=== PATIENT | female | born 1955 | race Caucasian/White ===

== ENCOUNTER 2017-09-16 06:35 | Day surgery (SDC) | payer OTHER ==
[2017-09-08 14:42] VITALS: BMI 35.5
[~2017-09-16 06:35] MED LIST: ALPRAZolam 0.25 MG TAB PO PRN; ALPRAZolam 0.5 MG TAB PO PRN; ASPIRIN 325 MG TAB PO STA; ATORVASTATIN 80 MG TAB PO STA; NITROGLYCERIN SL TABS 0.4 MG TAB SUBLINGUAL PRN; SODIUM CHLORIDE 0.9% 1,000 ML in EMPTY BAG 1 BAG IV ONE
[2017-09-16] MEDS ORDERED: LIDOCAINE 2% INJ 20 MG/ML (20 ML MDV) ONE (07:22)
[2017-09-16] MEDS ORDERED: VERAPAMIL 2.5 MG/ML 2 ML AMP ONE (07:23)
[2017-09-16 07:31] LABS: Basophils % (A) 0 %; Eosinophils # (A) 0.3 k/uL (0-0.7); Eosinophils % (A) 4 %; HCT 44.2 % (34.0-46.0); HGB 15.4 gm/dL (11.4-16.0); Lymphocytes % (A) 27 %; MCH 30.2 pg (25.0-35.0); MCHC 34.8 g/dL (31.0-37.0); MCV 86.7 fL (80.0-100.0); Mean Platelet Volume 7.3; Monocytes # (A) 0.4 k/uL (0-1.0); Monocytes % (A) 5 %; Neutrophils # (A) 4.5 k/uL (1.3-7.7); Neutrophils % (A) 62 %; Platelet Count 285 k/uL (150-450); RDW 12.2 % (11.5-15.5); WBC 7.2 k/uL (3.8-10.6)
[2017-09-16] MEDS ORDERED: MIDAZOLAM 2 MG/2 ML VIAL ONE ×2 (07:31→07:51)
[2017-09-16] MEDS ORDERED: HEPARIN SODIUM 1,000 UN/ML (10ML VL) ONE (07:31)
[2017-09-16 07:44] LABS: Anion Gap 15 mmol/L; Blood Urea Nitrogen 15 mg/dL (7-17); Calcium 9.6 mg/dL (8.4-10.2); Carbon Dioxide 26 mmol/L (22-30); Chloride 105 mmol/L (98-107); Glucose 132 mg/dL (74-99); Potassium 4.2 mmol/L (3.5-5.1); Sodium 146 mmol/L (137-145)
[2017-09-16] MEDS ORDERED: MIDAZOLAM 2 MG/2 ML VIAL IV ONE ×2 (07:50→07:53)
[2017-09-16] MEDS ORDERED: LIDOCAINE 2% INJ 20 MG/ML SQ ONE (07:52)
[2017-09-16] MEDS: VERAPAMIL SYRINGE (5 MG/10 ML) INTRAARTER ONE ×2 (07:53→09:00)
[2017-09-16] MEDS ORDERED: HEPARIN SODIUM 1,000 UN/ML (10ML VL) IV ONE (07:55)
[2017-09-16] MEDS: NITROGLYCERIN 1000MCG/10ML SYRINGE INTRAARTER ONE ×5 (07:59→08:55)
[2017-09-16] MEDS ORDERED: BIVALIRUDIN BOLUS 250 MG/50 ML IV ONE (08:14)
[2017-09-16] MEDS ORDERED: BIVALIRUDIN 250 MG in SODIUM CHLORIDE 0.9% 40 ML IV ONE (08:15)
[2017-09-16] MEDS ORDERED: fentaNYL (PF) 50 MCG/ML 2 ML AMP ONE (08:16)
[2017-09-16] MEDS ORDERED: fentaNYL (PF) 50 MCG/ML 2 ML AMP IV ONE (08:17)
[2017-09-16] MEDS ORDERED: ADENOSINE 90 MG in SODIUM CHLORIDE 0.9% 60 ML IVP ONE (08:23)
[2017-09-16] MEDS ORDERED: PRASUGREL 10 MG TAB ONE (08:30)
[2017-09-16] MEDS ORDERED: PRASUGREL 10 MG TAB PO ONE (08:32)
[2017-09-16] MEDS ORDERED: IOPAMIDOL-370 125ML BTL INJ ONE (08:39)
[2017-09-16] MEDS ORDERED: IOPAMIDOL-370 100ML BTL INJ ONE (08:58)
[2017-09-16] MEDS ORDERED: NITROGLYCERIN SL TABS 0.4 MG TAB SUBLINGUAL ONE ×2 (09:05→09:06)
[2017-09-16] MEDS ORDERED: NITROGLYCERIN SL TABS 0.4 MG TAB SUBLINGUAL PRN (09:07)
[2017-09-16] MEDS ORDERED: RX INFO: IV CONTRAST WAS GIVEN 1 EACH MISC MISCELLANE PRN (09:07)
[2017-09-16] MEDS ORDERED: MAG HYDROX/AL HYDROX/SIMETH 30 ML CUP PO PRN (09:07)
[2017-09-16] MEDS ORDERED: ATROPINE SULFATE 0.1 MG/ML 10ML SYRINGE IV PRN (09:07)
[2017-09-16] MEDS ORDERED: ZOLPIDEM 5 MG TAB PO PRN (09:07)
[2017-09-16] MEDS ORDERED: SODIUM CHLORIDE 0.9% 1,000 ML IV SCH (09:15)
--- NOTE | 2017-09-16 09:47 | CC ---
CARDIAC CATHETERIZATION REPORT DATE OF SERVICE: 09/16/2017 PERFORMING PHYSICIAN: Ritchie Hilliard MD, automobile service advisor. PROCEDURE PERFORMED: 1. Selective right and left coronary angiogram. 2. Left heart catheterization. 3. Fractional flow reserve of the LAD. 4. Successful stenting of the LAD using a 3.0 x 15 mm Xience ARGENIS with good angiographic results. 5. Successful stenting of the mid RCA using 2.5 x 15 mm Xience ARGENIS with good angiographic results. INDICATION: This is a pleasant 61-year-old female patient with a past medical history significant for hypertension, dyslipidemia, and borderline diabetes, was experiencing intermittent episodes of chest discomfort concerning for ischemia. She underwent a myocardial perfusion imaging stress test and that showed moderate area of ischemia involving the inferolateral and anterolateral wall of the LV. Because of that, a heart catheterization was recommended. APPROACH: Right radial artery. COMPLICATION: None. LEVEL OF SEDATION: Moderate with sedation length of 74 minutes. PROCEDURE DESCRIPTION: After obtaining an informed consent, the patient was brought to the cardiac labor contract analyst. The right radial artery was cannulated using micropuncture technique, the micropuncture wire passed easily, then I placed a 6-Greenlandic sheath in the right radial artery. After that, I did selective right and left coronary angiogram using JR4 and JL3.5 catheters. I did left heart catheterization using 6-Greenlandic pigtail catheter. After that, I did an FFR of the LAD as well as stenting of the LAD and RCA. Please see a separate paragraph for that. SELECTIVE CORONARY ANGIOGRAM: 1. The right coronary artery is a medium caliber vessel and it is a dominant vessel. The proximal RCA appeared to be angiographically normal. The mid RCA has a tight lesion and appeared to be in the range of 70% to 80%. The RCA distally has mild disease only. It bifurcates into a small to medium PDA branch and a very small PLV branch. 2. The left main is angiographically normal. It bifurcates into left circumflex and left anterior descending artery. 3. The left circumflex is a large caliber vessel and it is a codominant vessel. The proximal left circumflex appeared to have mild disease only and gives rise into the first OM branch, which is a medium caliber vessel with mild disease only. The mid left circumflex appeared to have mild disease only as well and gives rise into a second and third OM branches both are angiographically normal. The left circumflex distally bifurcates into PDA and PLV branches both are angiographically normal. 4. The LAD; the proximal LAD just before the bifurcation of a medium-sized diagonal branch has a lesion appeared to be in the range of 60% to 70%. We did an FFR on it and FFR came in to be ischemic at 0.77. The mid LAD appeared to be angiographically normal. The mid to distal LAD has another lesion appeared to be in the range of 70%. The LAD at that area becomes a small caliber vessel. The LAD gives rise into a medium size small to medium caliber diagonal branch which appeared to have moderate disease in the midportion. HEMODYNAMIC: The left ventricular end-diastolic pressure was 8 mmHg and no gradient was identified across the aortic valve. FFR OF THE LAD WELL STENTING OF THE LAD AND RCA: Anticoagulation was initiated using Angiomax. Subsequently I did JL3 guiding catheter and the catheter was advanced to the aortic root. I did not engage the left main. After zeroing the Doppler wire and equalizing between the Doppler wire and the guiding catheter, we did an FFR of the LAD per IV adenosine infusion and the FFR came in to be 0.77. At that point, I did balloon angioplasty of the proximal LAD using 2.5 mm balloon before I deployed 3.0 x 15 mm Xience ARGENIS where the stent was positioned under fluoroscopy guidance and deployed under its nominal pressure. The following angiogram showed good angiographic results and the procedure was completed without any complication. Regarding the RCA, after engaging the RCA using JR4 guide, I did wire the RCA using a whisper wire and I did after that balloon angioplasty of the RCA using 2.5 mm x 12 mm balloon which was inflated under 10 atmospheres for 20 seconds and subsequently I deployed a 2.5 x 15 mm another Xience ARGENIS where the stent was positioned under fluoroscopy guidance and the stent was deployed under 14 atmospheres for 20 seconds with the following angiogram showed good angiographic results. The procedure was completed without any complication. CONCLUSION: 1. Intermittent episodes of chest discomfort in this 61-year-old female patient with multiple risk factors for coronary artery disease including borderline diabetes, hypertension, and dyslipidemia. 2. Abnormal myocardial perfusion imaging stress test with evidence of moderate area of ischemia involving the inferolateral and anterolateral wall of the left ventricle. 3. Severe 2-vessel coronary artery disease involving the mid right coronary artery and proximal left anterior descending artery. 4. Successful stenting of both the right coronary artery and left anterior descending artery as described above and using a drug-eluting stent with good angiographic results and without any complication. POSTPROCEDURE MANAGEMENT: 1. Dual anti-platelet therapy. 2. Risk factors modifications. 3. Follow up with the patient. MMODL / IJN: [id number] /
--- NOTE | 2017-09-16 10:23 | LTR ---
DATE OF SERVICE: September 16, 2017 RE: Omayra Cm Dear Dr. Grimaldo, Ms. Omayra Cm underwent a heart catheterization and was found to have severe 2- vessel coronary artery disease involving the RCA and LAD. She underwent successful stenting of both lesions with good angiographic results and without any complication. I want to thank you for allowing me to participate in her care and please do not hesitate to call if you have any question or concern. Sincerely, MD MACY Valle / DOUGLAS: [id number] /
[2017-09-16] MEDS ORDERED: hydrALAZINE HCL 20 MG/ML 1 ML VIAL IVP PRN (11:51)
[2017-09-16] MEDS ORDERED: ACETAMINOPHEN TAB 325 MG TAB PO STA (16:53)
[2017-09-16] MEDS: PANTOPRAZOLE 40 MG TABLET PO SCH (17:11)
[2017-09-16] MEDS: BENZONATATE 100 MG CAP PO SCH ×2 (17:11→21:13)
[2017-09-16] MEDS: METOPROLOL TARTRATE 25 MG TAB PO SCH (21:13)
[2017-09-16 22:08] VITALS: RESP 18
[2017-09-17] MEDS: PANTOPRAZOLE 40 MG TABLET PO SCH (06:25)
[2017-09-17 06:56] LABS: Basophils % (A) 0 %; Eosinophils # (A) 0.2 k/uL (0-0.7); Eosinophils % (A) 3 %; HCT 41.1 % (34.0-46.0); HGB 14.3 gm/dL (11.4-16.0); Lymphocytes # (A) 1.8 k/uL (1.0-4.8); Lymphocytes % (A) 24 %; MCH 30.2 pg (25.0-35.0); MCHC 34.7 g/dL (31.0-37.0); MCV 86.8 fL (80.0-100.0); Mean Platelet Volume 6.8; Monocytes # (A) 0.4 k/uL (0-1.0); Monocytes % (A) 5 %; Neutrophils % (A) 66 %; Platelet Count 267 k/uL (150-450); RBC 4.73 m/uL (3.80-5.40); RDW 12.3 % (11.5-15.5); WBC 7.5 k/uL (3.8-10.6)
[2017-09-17 07:07] LABS: Anion Gap 11 mmol/L; Blood Urea Nitrogen 12 mg/dL (7-17); Calcium 9.7 mg/dL (8.4-10.2); Carbon Dioxide 25 mmol/L (22-30); Chloride 107 mmol/L (98-107); Glucose 103 mg/dL (74-99); Potassium 4.3 mmol/L (3.5-5.1); Sodium 143 mmol/L (137-145)
[2017-09-17] MEDS: BENZONATATE 100 MG CAP PO SCH (08:29)
[2017-09-17] MEDS: METOPROLOL TARTRATE 25 MG TAB PO SCH (08:29)
[2017-09-17 08:34] VITALS: BP 130/79; PULSE 82; TEMP 97.7
[2017-09-17] MEDS ORDERED: MONTELUKAST 10 MG TAB PO SCH (09:00)
[2017-09-17] MEDS ORDERED: ASPIRIN 325 MG TAB PO SCH (09:00)
[2017-09-17] MEDS ORDERED: ATORVASTATIN 20 MG TAB PO SCH (09:00)
[2017-09-17] MEDS ORDERED: PRASUGREL 10 MG TAB PO SCH (09:00)
[2017-09-17] MEDS ORDERED: LOSARTAN 25 MG TAB PO SCH (09:00)
--- NOTE | 2017-09-17 09:21 | DS ---
DISCHARGE SUMMARY ADMISSION DATE: September 16, 2017. DISCHARGE DATE: September 17, 2017 BRIEF HISTORY: This is a pleasant 61-year-old female patient with borderline diabetes, hypertension, and dyslipidemia, was experiencing intermittent episodes of chest discomfort and she underwent myocardial perfusion imaging stress test and that revealed ischemia. She underwent heart catheterization yesterday and that revealed severe 2 vessel CAD involving the proximal LAD and mid RCA. She underwent successful stenting of both the LAD and RCA with good angiographic results and without any complication. On follow up with her today, she is doing good and she is asymptomatic. The right radial access appears to be soft and nontender with mild bruises. She has a good right radial pulse. She did have a brief episode of nonsustained VT yesterday. She was started on metoprolol. She is going to be discharged home today on dual anti-platelet therapy along with high- dose statin and metoprolol. I will follow up with the patient in the office in a couple of days. MACY / DOUGLAS: [id number] /
--- NOTE | 2017-09-18 15:27 | ECHOF ---
Referral Reason:critical access hospital MEASUREMENTS -------- HEIGHT: 149.9 cm WEIGHT: 79.4 kg BP: 130/79 RVIDd: 2.9 cm (< 3.3) IVSd: 1.0 cm (0.6 - 1.1) LVIDd: 3.7 cm (3.9 - 5.3) LVPWd: 1.0 cm (0.6 - 1.1) IVSs: 1.4 cm LVIDs: 2.0 cm LVPWs: 1.5 cm LAESV Index (A-L): 21.28 ml/m Ao Diam: 2.8 cm (2.0 - 3.7) AV Cusp: 1.6 cm (1.5 - 2.6) LA Diam: 2.8 cm (2.7 - 3.8) EPSS: 0.5 cm MV E Arvind: 1.05 m/s MV DecT: 225 ms MV A Arvind: 0.95 m/s MV E/A Ratio: 1.11 RAP: 5.00 mmHg RVSP: 9.37 mmHg MV EF SLOPE: 43.04 mm/s (70 - 150) MV EXCURSION: 1.54 cm (> 18.000) FINDINGS -------- Sinus rhythm. This was a technically adequate study. The left ventricular size is normal. Left ventricular wall thickness is normal. Overall left vent ricular systolic function is normal with, an EF between 55 - 60 %. The right ventricle is normal in size and function. Normal LA size by volume 22+/-6 ml/m2. The right atrium is normal in size. Aortic valve is trileaflet and is mildly thickened. There is no evidence of aortic regurgitation. There is no evidence of aortic stenosis. The mitral valve leaflets are mildly thickened. There is trace to mild mitral regurgitation. Trace tricuspid regurgitation present. Right ventricular systolic pressure is normal at < 35 mmHg. There is no evidence of pulmonary hypertension. The pulmonic valve is normal. The aortic root size is normal. Normal inferior vena cava with normal inspiratory collapse consistent with estimated right atrial pre ssure of 5 mmHg. There is no pericardial effusion. CONCLUSIONS -------- 1. Sinus rhythm. 2. This was a technically adequate study. 3. The left ventricular size is normal. 4. Left ventricular wall thickness is normal. 5. Overall left ventricular systolic function is normal with, an EF between 55 - 60 %. 6. Normal LA size by volume 22+/-6 ml/m2. 7. Aortic valve is trileaflet and is mildly thickened. 8. The mitral valve leaflets are mildly thickened. 9. There is trace to mild mitral regurgitation. 10. Trace tricuspid regurgitation present. 11. Right ventricular systolic pressure is normal at < 35 mmHg. 12. There is no evidence of pulmonary hypertension. 13. The aortic root size is normal. 14. There is no pericardial effusion. SKIP LOCATOR: Noe Guzman RDCS
== END 2017-09-17 10:02 | disposition home or self-care (01) ==
LOC: CATHCVL 06:35 → 6SEL 09:02 → CATHCVL 09-17 10:02
PROVIDERS: ATTEND Internal Medicine Interventional Cardiology
DX: I25.110 Atherosclerotic heart disease of native coronary artery with unstable angina pectoris (principal); I08.3 Combined rheumatic disorders of mitral, aortic and tricuspid valves; I47.2 Ventricular tachycardia; R94.39 Abnormal result of other cardiovascular function study; E78.00 Pure hypercholesterolemia, unspecified; I10 Essential (primary) hypertension; R73.03 Prediabetes; Z82.49 Family history of ischemic heart disease and other diseases of the circulatory system; Z79.899 Other long term (current) drug therapy; Z88.0 Allergy status to penicillin
CPT/HCPCS: 94760; 93306; 93571; 93458; 80048 ×2; 85025 ×2; C9600 ×2; C1769 ×2; C1887 ×2; C1725 ×2; C1874; C1894; J2001; J2250; J0360; J3010; J1644; J0583; J0153; Q9967 ×2

== ENCOUNTER → 2017-11-15 | Outpatient (CLI) | payer OTHER ==
[2017-11-15 11:14] LABS: Cholesterol 149 mg/dL (<200); HDL Cholesterol 43 mg/dL (40-60); LDL Cholesterol,Calculated 82 mg/dL (0-99); Triglycerides 120 mg/dL (<150)
== END | disposition home or self-care (01) ==
LOC: LABWHC1 10:12
PROVIDERS: ATTEND Nurse Practitioner Adult Health
DX: I25.10 Atherosclerotic heart disease of native coronary artery without angina pectoris (principal); Z95.5 Presence of coronary angioplasty implant and graft
CPT/HCPCS: 36415; 80061

== ENCOUNTER → 2019-04-24 | Outpatient (CLI) | payer OTHER ==
--- NOTE | 2019-04-24 14:12 | XR ---
EXAMINATION TYPE: XR hand complete LT DATE OF EXAM: 04/24/2019 COMPARISON: NONE HISTORY: Pain and swelling TECHNIQUE: Three views are submitted. FINDINGS: The osseous structures are intact. The joint spaces are preserved and there is no acute fracture or dislocation. Soft tissue calcifications are noted. IMPRESSION: 1. No definite acute fracture or dislocation if symptoms persist, follow-up study in 7 to 10 days wo uld be suggested
== END | disposition home or self-care (01) ==
LOC: RADXRMAIN 12:38
PROVIDERS: ATTEND Family Medicine
DX: M79.642 Pain in left hand (principal); M79.89 Other specified soft tissue disorders

== ENCOUNTER → 2019-05-28 | Outpatient (CLI) | payer OTHER ==
[2019-05-28 13:39] LABS: Basophils % (A) 0 %; Eosinophils # (A) 0.3 k/uL (0-0.7); Eosinophils % (A) 3 %; HCT 42.1 % (34.0-46.0); Lymphocytes # (A) 1.8 k/uL (1.0-4.8); Lymphocytes % (A) 20 %; MCHC 33.3 g/dL (31.0-37.0); Mean Platelet Volume 7.8; Monocytes # (A) 0.4 k/uL (0-1.0); Monocytes % (A) 5 %; Neutrophils # (A) 6.2 k/uL (1.3-7.7); Neutrophils % (A) 70 %; Platelet Count 270 k/uL (150-450); RBC 4.68 m/uL (3.80-5.40); RDW 12.2 % (11.5-15.5); WBC 8.8 k/uL (3.8-10.6)
[2019-05-28 14:05] LABS: Potassium 4.5 mmol/L (3.5-5.1)
== END | disposition home or self-care (01) ==
LOC: LABPAT 12:17
PROVIDERS: ATTEND Orthopaedic Surgery
DX: Z01.818 Encounter for other preprocedural examination (principal); Z01.812 Encounter for preprocedural laboratory examination; S86.011D Strain of right Achilles tendon, subsequent encounter
CPT/HCPCS: 36415; 80051; 85025; 93005

== ENCOUNTER 2019-05-30 12:05 | Day surgery (SDC) | payer OTHER ==
[2019-05-28 16:20] VITALS: BMI 35.5
--- NOTE | 2019-05-28 19:24 | HP ---
HISTORY AND PHYSICAL CHIEF COMPLAINT: Right calf/posterior ankle pain. HISTORY OF PRESENT ILLNESS: Patient is a 63-year-old retired female who presents after injuring herself on 05/23/2019. She tripped over her vacuum and felt a pop in her right posterior calf/ankle. She has had pain and weakness since. She also notes some stiffness. She has been walking on this. She denies previous problems or injury. PAST MEDICAL HISTORY: Significant for coronary artery disease, rmz-zvrxvxh-qggepljnn diabetes, and hypertension. PAST SURGICAL HISTORY: Negative. CURRENT MEDICATIONS: Atorvastatin, losartan, metformin, metoprolol, and Pepcid. ALLERGIES: SHE HAS ALLERGIES TO PENICILLIN. FAMILY HISTORY: Significant for heart disease and cancer. SOCIAL HISTORY: Negative for current tobacco or alcohol use. REVIEW OF SYSTEMS: Sixteen point review of systems otherwise reviewed and is noncontributory. PHYSICAL EXAMINATION: On examination, the patient is approximately 4 foot 11 inches, 176 pounds of endomorphic habitus. HEENT exam is nonfocal. NECK: Supple. She has painless passive motion of the right hip. Straight leg raise is negative. She is nontender about the right knee and proximal fibula. On examination of her right ankle, she has moderate medial and lateral swelling. The skin is intact. She is tender over the musculotendinous junction of the heel cord. She does have a palpable defect. Lackey's test does not elicit plantar flexion. No mid or forefoot tenderness noted. Light touch is distally intact. X-rays of the right ankle obtained in the office show no definite osseous abnormality. The mortise appears to be intact. IMPRESSION: 1. Acute right Achilles tendon rupture. 2. Skf-doezkqt-njftnxnsy diabetes. RECOMMENDATIONS: I talked to the patient and her at length regarding her condition and treatment options. After thorough discussion, she opts to proceed with surgery. We will plan to proceed with right Achilles tendon repair. We will likely keep her for a 23-hour hold postoperatively. Risks and benefits were discussed at length in layman's terms. MMODL / IJN: [id number] /
[~2019-05-30 12:05] MED LIST changes: -ALPRAZolam 0.25 MG TAB PO PRN; -ALPRAZolam 0.5 MG TAB PO PRN; -ASPIRIN 325 MG TAB PO STA; -ATORVASTATIN 80 MG TAB PO STA; +DEXAMETHASONE SOD PHOSPHATE 10 MG/ML 1 ML VIAL IV ONE; +HYDROmorphone 0.5 MG/0.5 ML SYRINGE IVP PRN; +LIDOCAINE 1% 20 ML VIAL (10MG/ML) FOR IV START INTRADERMA PRN; +MIDAZOLAM 2 MG/2 ML VIAL IV PRN; -NITROGLYCERIN SL TABS 0.4 MG TAB SUBLINGUAL PRN; +ONDANSETRON 4 MG/2 ML VIAL IVP ONE; -SODIUM CHLORIDE 0.9% 1,000 ML in EMPTY BAG 1 BAG IV ONE; +fentaNYL (PF) 50 MCG/ML 2 ML AMP IVP PRN
[2019-05-30] MEDS: LACTATED RINGERS 1,000 ML IV SCH ×2 (12:56→22:56)
[2019-05-30 13:04] LABS: Glucose,Whole Blood 105 mg/dL (75-99)
[2019-05-30] MEDS ORDERED: fentaNYL (PF) 50 MCG/ML 2 ML AMP IV ONE (13:26)
[2019-05-30] MEDS: MIDAZOLAM 2 MG/2 ML VIAL IV ONE ×2 (13:26→15:36)
[2019-05-30] MEDS ORDERED: fentaNYL (PF) 50 MCG/ML 2 ML AMP ONE (13:47)
[2019-05-30] MEDS ORDERED: ROPIVACAINE 5 MG/ML 30 ML VIAL ONE (13:47)
[2019-05-30] MEDS ORDERED: MIDAZOLAM 2 MG/2 ML VIAL ONE (13:47)
--- NOTE | 2019-05-30 14:02 | P.ANPRN ---
Procedure Note - Anesthesia - Nerve Block Performed Right Saphenous/Obturator Single Time Out Performed: Yes Date of Procedure: 05/30/19 Procedure Start Time: 13:26 Procedure Stop Time: 13:35 Location of Patient: PreOp Indication: Acute Post-Operative Pain, Requested by Surgeon Specifically requested for management of pain by DrAdelaida: Luis Hunt Sedation Type: Sedate with meaningful contact maintained Preparation: Sterile Prep Position: Supine Catheter: None Needle Types: Pajunk Needle Gauge: 20 Ultrasound used to visualize needle placement: Yes Ultrasound used to observe medication spread: Yes Injectate: 0.5% Ropivacaine (see comment for volume) (20 cc) Blood Aspirated: No Pain Paresthesia on Injection Noted: No Resistance on Injection: Normal Image Stored and Saved: Yes Events: Uneventful and Well Tolerated
--- NOTE | 2019-05-30 14:04 | P.ANPRN ---
Procedure Note - Anesthesia - Nerve Block Performed Right Popliteal Single Time Out Performed: Yes Date of Procedure: 05/30/19 Procedure Start Time: 13:38 Procedure Stop Time: 13:43 Location of Patient: PreOp Indication: Acute Post-Operative Pain, Requested by Surgeon Specifically requested for management of pain by : Luis Hunt Sedation Type: Sedate with meaningful contact maintained Preparation: Sterile Prep Position: Left Lateral Catheter: None Needle Types: Pajunk Needle Gauge: 21 Ultrasound used to visualize needle placement: Yes Ultrasound used to observe medication spread: Yes Injectate: 0.5% Ropivacaine (see comment for volume) (20cc) Blood Aspirated: No Pain Paresthesia on Injection Noted: No Resistance on Injection: Normal Image Stored and Saved: Yes Events: Uneventful and Well Tolerated
[2019-05-30] MEDS ORDERED: LACTATED RINGERS 1,000 ML IV ONE (15:02)
[2019-05-30] MEDS ORDERED: ONDANSETRON 4 MG/2 ML VIAL IVP PRN (15:17)
[2019-05-30] MEDS ORDERED: NALOXONE 0.4 MG/ML 1 ML VIAL IV PRN (15:17)
--- NOTE | 2019-05-30 15:17 | P.OP ---
Date of Procedure: 05/30/19 Preoperative Diagnosis: Right distal Achilles tendon rupture Postoperative Diagnosis: Same Procedure(s) Performed: Right distal Achilles tendon repair Anesthesia: regional, spinal Surgeon: Luis Hunt Estimated Blood Loss (ml): 5 Pathology: none sent Condition: stable Disposition: PACU Indications for Procedure: The patient's 63-year-old female who last week injured herself falling at home and upon evaluation was noted to have evidence of an acute distal Achilles tendon rupture. A discussion of the risks and benefits of operative versus nonoperative treatment was made with patient and her . She opted to proceed with surgery. Operative risks to include infection, neurovascular injury, wound complications, tendon rerupture and possible need for subsequent procedures was discussed. Informed consent was obtained. Operative Findings: As below Description of Procedure: The patient was brought to the operating room, and after induction of spinal anesthesia was placed in a prone position on the operating table. The right lower extremity was prepped and draped in normal fashion. The tourniquet was inflated to 250 mmHg. An 8 cm incision was then made along the medial border of the distal heelcord. Skin and subcutaneous tissues were divided sharply. The tendon sheath was divided sharply. The rupture was evident and ends of the tendon were quite macerated. It appeared to be in the mid substance of the Achilles. Two #5 Ethibond sutures were placed in both the proximal and distal ends in a Cristina type fashion. The tendon ends were then reapproximated and sutures tied. The tendon edges were oversewn with simple 0 Vicryl suture. The tendon sheath was closed with interrupted 2-0 Vicryl sutures. The subcutaneous tissues were reapproximated interrupted 2-0 Vicryl sutures. The skin was repr epped with 3-0 subcuticular Prolene suture. Steri-Strips were applied. A sterile dressing was applied. The tourniquet was deflated approximate 60 minutes total tourniquet time. A bulky posterior splint with the ankle in plantarflexion was placed. The patient was awoken from sedation and transferred to the recovery room in good condition. Blood loss was estimated at 5 mL. No complications were incurred. Sponge and needle counts were correct at the end of the case.
[2019-05-30] MEDS ORDERED: hydrALAZINE HCL 20 MG/ML 1 ML VIAL IV ONE (15:59)
[2019-05-30] MEDS ORDERED: diphenhydrAMINE 50 MG/ML 1 ML VIAL IVP ONE (16:02)
[2019-05-30] MEDS ORDERED: MIDAZOLAM 2 MG/2 ML VIAL IVP ONE (16:08)
[2019-05-30 16:14] LABS: Glucose,Whole Blood 128 mg/dL (75-99)
[2019-05-30] MEDS: HYDROcodone/APAP 5-325MG 1 EACH TAB PO PRN (20:16)
[2019-05-30] MEDS: ALPRAZolam 0.5 MG TAB PO PRN (22:07)
[2019-05-30] MEDS ORDERED: LOSARTAN 25 MG TAB PO SCH (22:15)
[2019-05-30] MEDS ORDERED: MONTELUKAST 10 MG TAB PO SCH (22:15)
[2019-05-30] MEDS: METOPROLOL TARTRATE 25 MG TAB PO SCH (22:19)
[2019-05-30] MEDS: FAMOTIDINE 20 MG TAB PO SCH (22:19)
[2019-05-30 22:22] LABS: Glucose,Whole Blood 237 mg/dL (75-99)
[2019-05-30] MEDS ORDERED: metFORMIN 500 MG TAB PO ONE (22:30)
[2019-05-31] MEDS: HYDROcodone/APAP 5-325MG 1 EACH TAB PO PRN ×2 (01:47→08:19)
[2019-05-31] MEDS: ALPRAZolam 0.5 MG TAB PO PRN (06:28)
[2019-05-31 07:01] LABS: Glucose,Whole Blood 142 mg/dL (75-99)
[2019-05-31] MEDS: METOPROLOL TARTRATE 25 MG TAB PO SCH (08:20)
[2019-05-31] MEDS: FAMOTIDINE 20 MG TAB PO SCH (08:20)
--- NOTE | 2019-05-31 08:28 | P.PN ---
Subjective Progress Note Date: 05/31/19 Principal diagnosis: Status post right Achilles tendon repair The patient notes she did well overnight with only mild pain. Objective - Vital Signs Vital signs: Vital Signs Temp 97.5 F L 05/31/19 00:49 Pulse 64 05/31/19 00:49 Resp 14 05/31/19 00:49 BP 143/83 05/31/19 00:49 Pulse Ox 95 05/31/19 00:49 Intake & Output 05/30/19 05/31/19 05/31/19 18:59 06:59 18:59 Intake Total 1696 Output Total 5 300 Balance 1691 -300 Weight 79.9 kg Intake: IV 1400 Oral 296 Output: Urine 300 Estimated Blood Loss 5 Other: Voiding Method Bedside Commode # Voids 1 - Exam Right lower extremity splint intact. Light touch intact right toes. Capillary refill less than 2 seconds right toes. - Labs Labs: Abnormal Lab Results - Last 24 Hours (Table) 05/30/19 05/30/19 05/30/19 Range/Units 12:48 16:12 22:10 POC Glucose (mg/dL) 105 H 128 H 237 H (75-99) mg/dL 05/31/19 Range/Units 06:48 POC Glucose (mg/dL) 142 H (75-99) mg/dL Assessment and Plan Assessment: Status post right Achilles tendon repair Plan: Discharge home today. Aspirin 325 mg every day. Nonweightbearing with walker right lower extremity. Follow-up 2 weeks. Time with Patient: Less than 30
[2019-05-31 08:34] VITALS: BP 138/79; PULSE 59; RESP 12; TEMP 97.6
[2019-05-31] MEDS ORDERED: metFORMIN 500 MG TAB PO SCH (09:00)
[2019-05-31] MEDS ORDERED: ATORVASTATIN 80 MG TAB PO SCH (09:00)
[2019-05-31] MEDS ORDERED: ASPIRIN 325 MG TAB PO SCH (09:00)
== END 2019-05-31 13:59 | disposition home or self-care (01) ==
LOC: OR 12:05 → 4SSUR 16:59 → OR 05-31 13:59
PROVIDERS: ATTEND Orthopaedic Surgery
DX: S86.011A Strain of right Achilles tendon, initial encounter (principal); W01.0XXA Fall on same level from slipping, tripping and stumbling without subsequent striking against object, initial encounter; Y93.E3 Activity, vacuuming; I25.10 Atherosclerotic heart disease of native coronary artery without angina pectoris; I10 Essential (primary) hypertension; E11.9 Type 2 diabetes mellitus without complications; E78.5 Hyperlipidemia, unspecified; K21.9 Gastro-esophageal reflux disease without esophagitis; Z82.49 Family history of ischemic heart disease and other diseases of the circulatory system; Z80.9 Family history of malignant neoplasm, unspecified; Z95.5 Presence of coronary angioplasty implant and graft; F40.240 Claustrophobia; Z79.84 Long term (current) use of oral hypoglycemic drugs; Z79.899 Other long term (current) drug therapy; Z79.1 Long term (current) use of non-steroidal anti-inflammatories (NSAID); Z79.82 Long term (current) use of aspirin; Z88.0 Allergy status to penicillin
CPT/HCPCS: 97161; 64450; 64445; 76942; 27650; J2250; J0360; J1200; J1100; J0690 ×2; J2405; J3010; J2795

== ENCOUNTER 2022-06-01 06:04 | Day surgery (SDC) | payer OTHER ==
[2022-05-27 15:18] VITALS: BMI 34.3
[2022-06-01] MEDS ORDERED: LACTATED RINGERS 1,000 ML IV SCH (06:13)
[2022-06-01] MEDS ORDERED: LIDOCAINE 1% (10MG/ML) FOR IV START INTRADERMA PRN (06:13)
[2022-06-01] MEDS ORDERED: LACTATED RINGERS 1,000 ML IV ONE (06:24)
[2022-06-01 06:37] LABS: Glucose,Whole Blood 117 mg/dL (70-110)
[2022-06-01 06:38] VITALS: TEMP 98
[2022-06-01] MEDS ORDERED: LIDOCAINE 2% INJ 20 MG/ML (2 ML VIAL) ONE (07:00)
[2022-06-01] MEDS ORDERED: PROPOFOL 10 MG/ML 20 ML VIAL IV ONE (07:00)
--- NOTE | 2022-06-01 07:29 | P.PCN ---
Date of Procedure: 06/01/22 Procedure(s) Performed: Brief history: Patient is a pleasant 63-year-old white female scheduled for an elective upper endoscopy as well as colonoscopy as a part of evaluation of long-standing history of GERD intermittent dysphagia for the last several months duration. He scheduled for colonoscopy as a part of screening for colorectal neoplasia Procedure performed: Esophagogastroduodenoscopy with biopsy Colonoscopy Preoperative diagnosis: Long-standing history of GERD and intermittent dysphagia Screening for colon cancer Anesthesia: MAC Procedure: After informed consent was obtained from the patient was brought into the endoscopy unit and IV sedation was administered by anesthesia under continuous monitoring. Initially upper endoscopy was done. The Olympus GF 160 video endoscope was inserted inserted into the mouth and esophagus intubated without any difficulty and was gradually advanced into the stomach and duodenum and carefully examined. The bulb and second part of the duodenum appeared normal. The scope was then withdrawn into the stomach adequately insufflated with air and upon careful examination the antrum had mild antral gastritis and biopsies were done from this area. Mucosa of the body, cardia and fundus appeared normal. The scope was then withdrawn into the esophagus. Small sliding type hiatal hernia noted. The GE junction was located at 39 cm to the incisors. It appeared regular with 2 superficial erosions consistent with LA grade B reflux esophagitis. Rest of the esophagus appeared normal. Patient tolerated the procedure well. At this time the patient continued to remain sedation. Initial digital rectal examination was normal. Olympus CF 160 video colonoscope was then inserted into the rectum and gradually advanced to the cecum without any difficulty. Careful examination was performed as the scope was gradually being withdrawn. The prep was excellent. The cecum, ascending colon, transverse colon, descending colon, sigmoid colon and rectum appeared normal. Retroflexion was performed in the rectum and no lesions were noted. Patient tolerated the procedure well. Impression: 1. Upper endoscopy revealed mild antral gastritis, small hiatal hernia and LA grade B reflux esophagitis 2. Colonoscopy was within normal limits with no evidence of colorectal neoplasia Recommendations: Findings of this examination were discussed with the patient as well as her family. She was advised to follow with the biopsy results. Continue with Pr otonix 40 mg daily and follow antireflux measures. Recommend repeat screening colonoscopy in 10 years.
[2022-06-01 07:52] VITALS: BP 175/96; PULSE 66; RESP 20
== END 2022-06-01 08:37 | disposition home or self-care (01) ==
LOC: ORWHC2ENDO 06:04
PROVIDERS: ATTEND Internal Medicine Gastroenterology
DX: Z12.11 Encounter for screening for malignant neoplasm of colon (principal); K29.50 Unspecified chronic gastritis without bleeding; K44.9 Diaphragmatic hernia without obstruction or gangrene; K21.00 Gastro-esophageal reflux disease with esophagitis, without bleeding; I25.10 Atherosclerotic heart disease of native coronary artery without angina pectoris; I10 Essential (primary) hypertension; E78.5 Hyperlipidemia, unspecified; F17.210 Nicotine dependence, cigarettes, uncomplicated; E11.9 Type 2 diabetes mellitus without complications; Z95.5 Presence of coronary angioplasty implant and graft; Z79.84 Long term (current) use of oral hypoglycemic drugs; Z88.0 Allergy status to penicillin; Z79.82 Long term (current) use of aspirin; Z79.899 Other long term (current) drug therapy
CPT/HCPCS: 88305; 43239; J2704; J2001; G0121

== ENCOUNTER → 2022-09-15 | Outpatient (CLI) | payer OTHER ==
[2022-09-15 15:23] LABS: Basophils # (A) 0.03 X 10*3/uL (0.00-0.10); Basophils % (A) 0.4 %; Eosinophils % (A) 2.6 %; HGB 14.7 g/dL (12.0-15.0); Immature Grans, Automated 0.4 %; Lymphocytes # (A) 1.63 X 10*3/uL (0.90-5.00); Lymphocytes % (A) 21.1 %; MCH 30.5 pg (27.0-32.0); MCHC 34.2 g/dL (32.0-37.0); MCV 89.2 fL (80.0-97.0); Mean Platelet Volume 10.8 fL (9.5-12.2); Monocytes # (A) 0.54 X 10*3/uL (0.20-1.00); NRBC Per 100 WBC 0 /100 WBCS (0.0-0.0); Neutrophils # (A) 5.28 X 10*3/uL (1.80-7.70); Neutrophils % (A) 68.5 %; Platelet Count 292 X 10*3/uL (140-440); RBC 4.82 X 10*6/uL (4.10-5.20); RDW 12.3 % (11.5-14.5); WBC 7.71 X 10*3/uL (4.50-10.00)
[2022-09-15 16:20] LABS: Chol/HDL Ratio 3.22 Ratio; LDL Cholesterol,Calculated 80.9 mg/dL (0.0-131.0); Magnesium 1.6 mg/dL (1.5-2.4); VLDL Calculation 19.12 mg/dL (5.00-40.00)
[2022-09-15 16:21] LABS: ALT 37 U/L (8-44); AST 40 U/L (13-35); African American GFR (CKD) 111.6 (60.0-200.0); Albumin 4.7 g/dL (3.8-4.9); Albumin/Globulin Ratio 1.88 (1.60-3.17); Alkaline Phosphatase 92 U/L (41-126); BUN/Creat Ratio 17.83 Ratio (12.00-20.00); Blood Urea Nitrogen 10.7 mg/dL (9.0-27.0); Calcium 9.9 mg/dL (8.7-10.3); Carbon Dioxide 27.8 mmol/L (20.0-27.5); Chloride 103 mmol/L (96-109); Globulin 2.5 g/dL (1.6-3.3); Glucose 148 mg/dL (70-110); Non-African American GFR(CKD) 96.3 (60.0-200.0); Potassium 4.1 mmol/L (3.5-5.5); Sodium 143 mmol/L (135-145); Total Protein 7.2 g/dL (6.2-8.2)
== END | disposition home or self-care (01) ==
LOC: LABWHC1 09:47
PROVIDERS: ATTEND Internal Medicine
DX: Z00.00 Encounter for general adult medical examination without abnormal findings (principal); Z11.59 Encounter for screening for other viral diseases; E11.9 Type 2 diabetes mellitus without complications
CPT/HCPCS: 36415; 80053; 80061; 82043; 82570; 83036; 83735; 84443; 85025; 86803

== ENCOUNTER → 2022-11-03 | Outpatient (CLI) | payer MEDICARE, OTHER ==
--- NOTE | 2022-11-03 18:28 | BD ---
EXAMINATION TYPE: Axial Bone Density DATE OF EXAM: 11/03/2022 CLINICAL HISTORY: 67 years old Female. ICD-10 CODE: Z13.820 Screening for osteoporosis, Z78.0 post m enopausal Height: 58.7 in Weight: 164 lbs FRAX RISK QUESTIONS: History of Fracture in Adulthood: rt elbow fx age 52 Secondary Osteoporosis: 3. Menopause before 45: age 50 RISK FACTORS HISTORY OF: Active: yes Postmenopausal woman: age 50 MEDICATIONS: Additional Medications: blood pressure meds, cholesterol meds EXAM MEASUREMENTS: Bone mineral densitometry was performed using the [employer] System. Bone mineral density as measured about the Lumbar spine is: ----- L1-L4(G/cm2): 1.200 T Score Values are as follows: ----- L1: 0.5 ----- L2: -0.2 ----- L3: 0.8 ----- L4: -0.4 ----- L1-L4: 0.2 Z Score Values are as follows: ----- L1: 1.8 ----- L2: 1.1 ----- L3: 2.0 ----- L4: 0.9 ----- L1-L4: 1.4 Bone mineral density baseline Bone mineral density about the R hip (g/cm2): 0.919 Bone mineral density about the L hip (g/cm2): 0.909 T Score values are as follows: -----R Neck: -1.1 -----L Neck: -1.4 -----R Total: -0.7 -----L Total: -0.8 Z Score values are as follows: -----R Neck: 0.2 -----L Neck: -0.1 -----R Total: 0.3 -----L Total: 0.2 Bone mineral density baseline FRAX%s: The graph provided illustrates a 13.5% chance for a major osteoporotic fx and a 1.3% chance f or the hips probability for fx in 10 years time. IMPRESSION: Osteopenia (T Score between -2.5 and -1). There is slightly increased risk of fracture and the patient may be considered for treatment. Re-Screen 2-5 years. NOTE: T-SCORE=SD OF THE YOUNG ADULT MEAN.
--- NOTE | 2022-11-04 08:10 | MM ---
Reason for Exam: Screening (asymptomatic). Patient History: Menarche at age 14. First Full-Term at age 22. Postmenopausal. Other cancer at or over age 50. Risk Values: Kayla 5 year model risk: 1.5%. NCI Lifetime model risk: 5.6%. Tissue Density: The breast tissue is heterogeneously dense. This may lower the sensitivity of mammography. Findings: Analyzed By CAD. Indeterminate calcifications upper outer right breast. Spot magnification compression views are recommended. No masses present. Overall Assessment: Incomplete: need additional imaging evaluation, BI-RAD 0 Management: Diagnostic Mammogram of the right breast. . Patient should continue monthly self-breast exams. A clinical breast exam by your physician is recommended on an annual basis. This exam should not preclude additional follow-up of suspicious palpable abnormalities. Note on Kayla scores and lifetime risk: 1. A Kayla score greater than 3% is considered moderate risk. If this is the case, consider specialist referral to assess eligibility for a risk reducing agent. 2. If overall lifetime risk for the development of breast cancer is 20% or higher, the patient may qualify for future screening with alternating mammogram and breast MRI. Electronically signed and approved by: Stewart Valencia M.D. Radiologis
== END | disposition home or self-care (01) ==
LOC: RADMAMWWP 08:20
PROVIDERS: ATTEND Internal Medicine
DX: Z12.31 Encounter for screening mammogram for malignant neoplasm of breast (principal); Z13.820 Encounter for screening for osteoporosis; M85.89 Other specified disorders of bone density and structure, multiple sites; Z78.0 Asymptomatic menopausal state
CPT/HCPCS: 77063; 77067; 77080

== ENCOUNTER → 2022-11-08 | Outpatient (CLI) | payer MEDICARE ==
--- NOTE | 2022-11-08 10:51 | MM ---
Reason for Exam: Additional evaluation requested from prior study. Last screening mammogram was performed less than 1 month ago. Patient History: Menarche at age 14. First Full-Term at age 22. Postmenopausal. Other cancer at or over age 52. Risk Values: Kayla 5 year model risk: 1.5%. NCI Lifetime model risk: 5.6%. Tissue Density: Right: There are scattered fibroglandular densities. Findings: Analyzed By CAD. Grouped calcifications within the left breast remain present located 7.3 cm nipple on CC view extending approximately 11 x 8 mm. Overall Assessment: Suspicious, BI-RAD 4 Management: Stereotactic Core Biopsy of the left breast. Results were given to the patient verbally at the time of exam. Patient should continue monthly self-breast exams. A clinical breast exam by your physician is recommended on an annual basis. This exam should not preclude additional follow-up of suspicious palpable abnormalities. Note on Kayla scores and lifetime risk: 1. A Kayla score greater than 3% is considered moderate risk. If this is the case, consider specialist referral to assess eligibility for a risk reducing agent. 2. If overall lifetime risk for the development of breast cancer is 20% or higher, the patient may qualify for future screening with alternating mammogram and breast MRI. Electronically signed and approved by: Tung Donovan DO
== END | disposition home or self-care (01) ==
LOC: RADMAMWWP 10:20
PROVIDERS: ATTEND Internal Medicine
DX: R92.8 Other abnormal and inconclusive findings on diagnostic imaging of breast (principal); Z78.0 Asymptomatic menopausal state
CPT/HCPCS: 77065; G0279; 77061

== ENCOUNTER → 2022-12-29 | Outpatient (CLI) | payer MEDICARE ==
[2022-12-29 07:50] VITALS: BP 127/78; PULSE 62; RESP 18; TEMP 98.8
--- NOTE | 2022-12-29 08:29 | P.GSHP ---
History of Present Illness H&P Date: 12/29/22 Chief Complaint: DCIS right breast Omayra is a 67 year old white female seen in consultation for Dr. Sy regarding a biopsy-proven right breast DCIS. [place] [address]. This revealed indeterminate calcifications in t he upper outer right breast. Spot magnification compression views were recommended. No masses were appreciated[place] [address]. This revealed 11 x 8 mm group of calcifications in the right breast. Stereotactic core biopsy was recommended. [place] [id number]. Pathology revealed DCIS. This is in the right breast at the 10 o'clock position. There is some clip migration and after review with Dr. Dowell the residual calcification should be localized. This was found on a routine screening mammogram, she had not had a mammogram for 10 years. Do not feel any lumps masses or nodules of concern in the breast. She had not had any recent trauma or infection in the breast. She has never had any surgery on her breast. Caffeine: 2 cups/day nicotine: none chocolate: occasional BCP: 10 years hormones: none Family History: unknown Hormonal History: menarche: 15 , breast fed: no, age at first : 22 menopause: 52 Surgical history: Right Achilles tendon 2 heart stents; 6 years ago; takes a baby aspirin melanoma right leg; > 7 years ago back lesion premelanoma cyst from back Medical history: HTN diabetic CAD history of melanoma GERD Social History: nicotine: as above alcohol: occasional drugs:none - Constitutional Constitutional: Denies chills, Denies fever - EENT Eyes: denies blurred vision, denies pain Ears: deny: decreased hearing, tinnitus Ears, nose, mouth and throat: Denies headache, Denies sore throat - Breasts Breasts: bilateral: as per HPI - Cardiovascular Cardiovascular: Denies chest pain, Denies shortness of breath - Respiratory Respiratory: Reports cough - Gastrointestinal Comment: GERD - Genitourinary (Female) Genitourinary: Denies dysuria, Denies hematuria - Menstruation Menstruation: Reports postmenopausal - Musculoskeletal Musculoskeletal: Denies myalgias - Integumentary Comment: 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 Integumentary: Reports as per HPI, Denies pruritus, Denies rash - Neurological Neurological: Denies numbness, Denies weakness - Psychiatric Psychiatric: Denies anxiety, Denies depression - Endocrine Endocrine: Reports as per HPI - Hematologic/Lymphatic Comment: baby aspirin - Allergic/Immunologic Allergic/Immunologic: Reports as per HPI Past Medical History Past Medical History: Coronary Artery Disease (CAD), Cancer, Diabetes Mellitus, GERD/Reflux, Hyperlipidemia, Hypertension Additional Past Medical History / Comment(s): hx invasive melanoma, torn achilles tendon History of Any Multi-Drug Resistant Organisms: None Reported Past Surgical History: Heart Catheterization With Stent Additional Past Surgical History / Comment(s): wide wedge resection on rt leg for invasive melanoma, Heart Cath with 2 stents (09/16/2017), achilles tendon repair Past Anesthesia/Blood Transfusion Reactions: No Reported Reaction, Family History of Problems w/ Anesthesia Additional Past Anesthesia/Blood Transfusion Reaction / Comment(s): pt is claustrophobic. sister-PONV Date of Last Stent Placement:: 09/16/2017 Past Psychological History: No Psychological Hx Reported Smoking Status: Former smoker Past Alcohol Use History: None Reported Additional Past Alcohol Use History / Comment(s): smoked during high school <1/2ppd Past Drug Use History: None Reported - Past Family History Mother Family Medical History: Cancer Additional Family Medical History / Comment(s): skin Medications and Allergies Home Medications Medication Instructions Recorded Confirmed Type Losartan [Cozaar] 25 mg PO DAILY 09/08/17 12/29/22 History Montelukast [Singulair] 10 mg PO HS 09/08/17 12/29/22 History Atorvastatin [Lipitor] 80 mg PO DAILY #0 09/17/17 12/29/22 Rx Metoprolol Tartrate [Lopressor] 25 mg PO BID #90 tab 09/17/17 12/29/22 Rx Aspirin [Adult Low Dose Aspirin EC] 81 mg PO DAILY 05/28/19 12/29/22 History metFORMIN HCL [Glucophage] 500 mg PO DAILY 05/28/19 12/29/22 History Pantoprazole [Protonix] 40 mg PO DAILY 05/27/22 12/29/22 History cloNIDine HCL [Catapres] 0.1 mg PO DAILY PRN 12/29/22 12/29/22 History hydroCHLOROthiazide 12.5 mg PO DAILY 12/29/22 12/29/22 History Allergies Allergy/AdvReac Type Severity Reaction Status Date / Time Penicillins Allergy Unknown Verified 12/29/22 07:50 Childhood Surgical - Exam Vital Signs Temp Pulse Resp BP Pulse Ox 98.8 F 62 18 127/78 92 L 12/29/22 07:47 12/29/22 07:47 12/29/22 07:47 12/29/22 07:47 12/29/22 07:47 - General no distress - Eyes normal ocular movement - Neck trachea midline - Respiratory normal respiratory effort, clear to auscultation - Cardiovascular Rhythm: regular Heart Sounds: normal: S1, S2 - Abdomen Abdomen: soft, non tender, no guarding, no rigid, no rebound - Integumentary scar right leg - Musculoskeletal normal gait - Psychiatric oriented to time, oriented to person, oriented to place, speech is normal, memory intact Breast Exam: BRA: 40B Inspection: bilateral grade 3 ptosis Palpation: Right breast slightly larger than left breast, multiple positional exam no dominant masses or nodules of concern, mild ecchymosis lateral aspect related to recent biopsy Right axilla: No adenopathy of concern Left breast: Multi-positional exam no dominant masses or nodules of concern Left axilla: No adenopathy of concern Results Mammogram reviewed with Dr. Fitzgerald, microcalcifications of concern right breast upper outer quadrant area identified, the examination of the radiograph following the stereo biopsy shows mild clip migration and recommendation is for needle localization of residual calcification rather than the clip Assessment and Plan Assessment: Impression: Right breast DCIS ER/MD positive Fibrocystic breast changes History of prior coronary artery disease with 2 stents GERD Hypertension Plan: Presentation of case at tumor board Needle localization right breast lumpectomy, possible optical plastic tissue transfer, sentinel node injection right, sentinel node biopsy The area of concern has some mild clip migration and the recommendation is for needle localization of residual calcification rather than the clip Cc: Dr. Sy
== END ==
LOC: WWCWWP 07:37
PROVIDERS: ATTEND Surgery
DX: D05.11 Intraductal carcinoma in situ of right breast (principal); N60.11 Diffuse cystic mastopathy of right breast; K21.9 Gastro-esophageal reflux disease without esophagitis; E11.9 Type 2 diabetes mellitus without complications; E78.5 Hyperlipidemia, unspecified; I10 Essential (primary) hypertension; I25.10 Atherosclerotic heart disease of native coronary artery without angina pectoris; Z79.84 Long term (current) use of oral hypoglycemic drugs; Z79.899 Other long term (current) drug therapy; Z87.891 Personal history of nicotine dependence; Z88.0 Allergy status to penicillin; Z95.5 Presence of coronary angioplasty implant and graft; Z85.820 Personal history of malignant melanoma of skin

== ENCOUNTER 2023-02-22 07:27 | Day surgery (SDC) | payer MEDICARE ==
[2023-02-15 14:47] VITALS: BMI 32.9
[~2023-02-22 07:27] MED LIST changes: +ALPRAZolam 0.25 MG TAB PO PRN; -DEXAMETHASONE SOD PHOSPHATE 10 MG/ML 1 ML VIAL IV ONE; +DEXAMETHASONE SOD PHOSPHATE 4 MG/ML 1 ML VIAL IV ONE; +HEPARIN SODIUM,PORCINE/PF 5,000 UNIT/0.5 ML SYRINGE SQ PRN; -HYDROmorphone 0.5 MG/0.5 ML SYRINGE IVP PRN; +LACTATED RINGERS 1,000 ML IV SCH; -LIDOCAINE 1% 20 ML VIAL (10MG/ML) FOR IV START INTRADERMA PRN; -MIDAZOLAM 2 MG/2 ML VIAL IV PRN; +fentaNYL (PF) 50 MCG/ML 2 ML AMP IV PRN; -fentaNYL (PF) 50 MCG/ML 2 ML AMP IVP PRN
[2023-02-22 08:32] LABS: Glucose,Whole Blood 122 mg/dL (70-110)
[2023-02-22] MEDS ORDERED: LIDOCAINE 1% INJ 10MG/ML (20 ML MDV) SQ ONE (08:46)
[2023-02-22 09:15] VITALS: TEMP 98.1
--- NOTE | 2023-02-22 10:08 | P.NAPBC ---
NAPBC Queries - NAPBC Queries Was patient's case review presented at [facility] tumor board? If no, comment.: Yes Was patient's pathology reviewed at [facility]? If no, comment.: Yes Was breast conservation surgery offered? If no, comment.: Yes Was sentinel node biopsy offered? If no, comment.: Yes Was diagnosis confirmed by percutaneous core biopsy? If no, comment.: Yes Is patient mastectomy patient?: No Was a preop referral to reconstructive surgeon offered?: No Clinical Stage: right breast stage 0 DCIS
--- NOTE | 2023-02-22 11:04 | NM ---
EXAMINATION TYPE: NM sentinel node injection DATE OF EXAM: 02/22/2023 COMPARISON: 12/07/2022 CLINICAL INDICATION: Female, 67 years old with history of RIGHT BREAST DCIS; TECHNIQUE AND FINDINGS: The procedure of sentinel lymph node injection was explained to the patient. The benefits, alternatives, and risks were discussed. An informed consent was then obtained. Overlying skin is cleaned with sterile alcohol. Following this, 520 uCi Tc99m Tilmanocept was inject ed in the upper outer aspect of the right nipple intradermally. The patient tolerated the procedure well without any immediate complication. The patient was kept in the radiology department for short stay after the procedure and then taken to surgery for surgical p rocedure what is presumed intraoperative gamma probe will be used for sentinel lymph node detection. IMPRESSION: Right breast radiotracer injection for sentinel node localization as above.
[2023-02-22] MEDS ORDERED: PROPOFOL 10 MG/ML 20 ML VIAL IV ONE (12:00)
[2023-02-22] MEDS ORDERED: SUCCINYLCHOLINE CHLORIDE 200 MG/10 ML VIAL IV ONE (12:00)
[2023-02-22] MEDS ORDERED: LIDOCAINE 2% INJ 20 MG/ML (2 ML VIAL) ONE (12:00)
[2023-02-22] MEDS ORDERED: GLYCOPYRROLATE 0.2 MG/ML 2 ML VIAL ONE (12:00)
[2023-02-22] MEDS ORDERED: MIDAZOLAM 2 MG/2 ML VIAL ONE (12:00)
[2023-02-22] MEDS ORDERED: KETOROLAC 15 MG/ML 1 ML VIAL ONE (12:00)
[2023-02-22] MEDS ORDERED: fentaNYL (PF) 50 MCG/ML 2 ML AMP ONE (12:00)
--- NOTE | 2023-02-22 13:44 | P.OP ---
Date of Procedure: 02/22/23 Preoperative Diagnosis: DCIS right breast Postoperative Diagnosis: Same Procedure(s) Performed: Right breast sentinel node biopsy, right breast needle localization lumpectomy with onco-plastic tissue transfer 31 cm Anesthesia: RADHA Surgeon: Yojana Sales Estimated Blood Loss (ml): 10 IV fluids (ml): 400 Pathology: other (Breast tissue, axillary sentinel node) Condition: stable Disposition: same day Indications for Procedure: Biopsy-proven right breast DCIS Operative Findings: Fibrofatty breast tissue Description of Procedure: The patient was first seen in the radiology department localization of the area of concern in the right breast was performed. Injection of radiotracer was performed around the nipple areolar complex. The patient was then brought to the operative suite. Following induction of anesthesia the axilla was interrogated. Using the neoprobe the radioactivity in the axilla was identified such that the patient was felt to be within the sentinel node biopsy without methylene blue injection. Following this the right breast and axilla were prepped and draped in a sterile fashion. The area of the axilla was approached initially. Using the neoprobe the area of greatest radioactivity was identified. An incision was made and carried down into the axillary tissue. Using the neoprobe the area of greatest radioactivity was grasped using an Allis clamp. A pusher was used to push the other tissue away. The Harmonic Scalpel was used to resect this area of tissue. The 10 second count on the first specimen was 1456. The second area was identified and the 10 second count was over 100,000. The background count in the axilla was 17. No other lymph nodes of concern were palpated or identified. Was well irrigated. The deep tissues were closed using 3-0 Vicryl suture. The skin was closed using 4-0 Monocryl. Following this the area of the breast was approached. An incision was made in the breast. This was carried down to the shaft of the needle. Surrounding tissue was excised. The specimen was 6 x 3 cm in size. The specimen was painted for orientation. Radiograph of the specimen revealed that the lesion of concern/microcalcifications as well as the clip and the needle were all removed. After assured that hemostasis was attained a superior flap which is 5 x 2 cm was created in an inferior flap 3 x 1 cm created. Total tissue transfer 31 cm. The deep tissues were brought together using 3-0 Vicryl suture. Prior to closure of the defect titanium clips were placed. Following this the subcutaneous tissue was closed using 3-0 Vicryl sutu re. The skin was closed using 4-0 Monocryl. The patient tolerated the procedure in stable condition. All instrument and sponge counts were correct at the end of the case.
[2023-02-22 14:04] LABS: Glucose,Whole Blood 164 mg/dL (70-110)
[2023-02-22] MEDS ORDERED: HYDROmorphone 0.5 MG/0.5 ML SYRINGE IVP ONE (14:14)
[2023-02-22 14:56] VITALS: RESP 16
[2023-02-22 15:09] VITALS: BP 136/77; PULSE 67
--- NOTE | 2023-02-22 15:19 | MM ---
Risk Values: Kayla 5 year model risk: 1.5%. NCI Lifetime model risk: 5.6%. Prior Study Comparison: 11/03/2022 Bilateral MG 3D screening mammo w/cad, [facility]. 11/08/2022 Right MG 3D work up w/cad RT, [facility]. Pathology Description: The procedure of needle localization with wire placement and than surgical excision was explained to the patient. Benefits, alternatives, and risks were discussed. An informed consent was then obtained. The clip and site of biopsy-proven DCIS in the lateral right breast is identified and targeted for biopsy. We note slight inferior migration. The shortest pathway for procedure was chosen. Shortest pathway was a superior approach. The overlying skin was prepped and draped in usual sterile fashion. Lidocaine was used as anesthetic into the skin and subcutaneous tissue up to the level of area of concern. A 9 cm Kopans needle was used. It was placed via a superior approach under mammographic guidance. Subsequent 90 degrees mammogram show the needle to be in satisfactory position relative to the targeted area. At this point, wire was placed and the needle was withdrawn. The wire was fixed to patient's skin. Images were marked for surgeon. The patient tolerated the procedure well without any immediate complication. The patient was kept in the radiology department for short stay after the procedure and then taken to surgery for surgical excision. Targeted calcifications , clip, and wire are identified in specimen mammogram. The patient was kept in hospital for short stay after the procedure and then discharged home in stable condition. IMPRESSION: Successful, uncomplicated needle localization with wire placement and surgical excision of site of biopsy-proven right breast DCIS; full pathology results to follow. Pathology Results: Results pending. Electronically signed and approved by: Martina Fitzgerald M.D. Radiologist
--- NOTE | 2023-03-01 13:36 | MM ---
Risk Values: Kayla 5 year model risk: 1.5%. NCI Lifetime model risk: 5.6%. Management: Surgical Consultation of the right breast. Diagnostic Mammogram of the right breast in 6 months. Electronically signed and approved by: Martina Fitzgerald M.D. Radiologist
== END 2023-02-22 15:40 | disposition home or self-care (01) ==
LOC: OR 07:27
PROVIDERS: ATTEND Surgery
DX: D05.11 Intraductal carcinoma in situ of right breast (principal); I10 Essential (primary) hypertension; E11.9 Type 2 diabetes mellitus without complications; I25.10 Atherosclerotic heart disease of native coronary artery without angina pectoris; K21.9 Gastro-esophageal reflux disease without esophagitis; F10.90 Alcohol use, unspecified, uncomplicated; F15.90 Other stimulant use, unspecified, uncomplicated; Z85.828 Personal history of other malignant neoplasm of skin; Z79.82 Long term (current) use of aspirin; Z79.84 Long term (current) use of oral hypoglycemic drugs; Z79.899 Other long term (current) drug therapy
CPT/HCPCS: 88342; 88307; 88341; 76098; 19281; 38792; 19301; 38525; 38900; C1819; A9520; J2250; J0330; J1100; J0690; J2405; J2001 ×2; J3010; J1885; J2704; J1170; J1644

== ENCOUNTER → 2023-03-03 | Outpatient (CLI) | payer MEDICARE ==
[2023-03-03 16:24] VITALS: BP 121/75; PULSE 65; RESP 18; TEMP 98.5
--- NOTE | 2023-03-03 16:52 | P.PN ---
Progress Note - Text Progress Note Date: 03/03/23 Omayra is a 67 year old white female status post right breast lumpectomy and SNB on 02-22-23. Her tumor was 6mm. Nodes 1 (-). Examination: Lungs: Clear Heart: Regular rate and rhythm Incision: Clean and dry breast and axilla in Impression: Patient doing well status post lumpectomy right breast with sentinel node biopsy on Plan: with radiation oncology Appointment medical oncology Follow-up here in 4 months CC: Yossi
== END ==
LOC: WWCWWP 15:44
PROVIDERS: ATTEND Surgery
DX: Z04.89 Encounter for examination and observation for other specified reasons (principal); Z85.3 Personal history of malignant neoplasm of breast; Z90.10 Acquired absence of unspecified breast and nipple; Z88.0 Allergy status to penicillin

== ENCOUNTER → 2023-03-25 | Outpatient (CLI) | payer MEDICARE ==
--- NOTE | 2023-03-25 11:21 | P.PN ---
Progress Note - Text Progress Note Date: 03/25/23 Omayra is a 67 year old white female status post right breast lumpectomy and SNB on 02-22-23. Her tumor was 6mm. Nodes 1 (-). Patient states that she developed some drainage from the lateral aspect of the incision. This has decreased at this time. She has no fever or chills. She has no erythema of the wound. She does have a small pinpoint opening where she had some drainage. Examination: Lungs: Clear Heart: Regular rate and rhythm Incision: Clean and dry breast and axilla in, pinpoint opening at the lateral aspect of the lumpectomy site Impression: Patient doing well status post lumpectomy right breast with sentinel node biopsy on Recommend suture at pinpoint opening lateral aspect of lumpectomy site Plan: with radiation oncology Appointment medical oncology Follow-up here in 1 week Following informed consent. Concern in the right breast was prepped using alcohol. One percent lidocaine was used to anesthetize the area of the opening. 3-0 nylon suture was placed to secure the opening. CC: Yossi
[2023-03-25 11:51] VITALS: BP 125/78; PULSE 60; RESP 17; TEMP 97.8
== END ==
LOC: WWCWWP 11:04
PROVIDERS: ATTEND Surgery
DX: Z98.890 Other specified postprocedural states (principal); Z88.0 Allergy status to penicillin

== ENCOUNTER → 2023-04-01 | Outpatient (CLI) | payer MEDICARE ==
--- NOTE | 2023-04-01 09:57 | P.PN ---
Progress Note - Text Progress Note Date: 04/01/23 Omayra is a 67 year old white female status post right breast lumpectomy and SNB on 02-22-23. Her tumor was 6mm. Nodes 1 (-). Patient states that she developed some drainage from the lateral aspect of the incision, this has stopped. She has no fever or chills. She has no erythema of the wound. She is no opening at this time. Examination: Lungs: Clear Heart: Regular rate and rhythm Incision: Clean and dry breast and axilla , pinpoint opening at the lateral aspect of the lumpectomy site now closed Impression: Patient doing well status post lumpectomy right breast with sentinel node biopsy on Suture removal Plan: appointment radiation oncology Appointment medical oncology Follow-up here in 4 months CC: Yossi
== END ==
LOC: WWCWWP 09:04
PROVIDERS: ATTEND Surgery
DX: L76.82 Other postprocedural complications of skin and subcutaneous tissue (principal); Z88.0 Allergy status to penicillin

== ENCOUNTER → 2023-07-07 | Outpatient (CLI) | payer MEDICARE ==
--- NOTE | 2023-07-07 11:42 | P.PN ---
Subjective Progress Note Date: 07/07/23 Principal diagnosis: right breast stage I IDC, 2022 Stage I IDC, DCIS right breast Omayra is a 67 year old white female seen in consultation for Dr. Sy regarding a biopsy-proven right breast DCIS. The [place] [address]. This revealed indeterminate calcifications in the upper outer right breast. Spot magnification compression views were recommended. No masses were appreciated. [place] [id number]. This revealed 11 x 8 mm group of calcifications in the right breast. Stereotactic core biopsy was recommended. [place] [address]. Pathology revealed DCIS. This is in the right breast at the 10 o'clock position. There is some clip migration and after review with Dr. Dowell the residual calcification should be localized. This was found on a routine screening mammogram, she had not had a mammogram for 10 years. Did not feel any lumps masses or nodules of concern in the breast. She had not had any recent trauma or infection in the breast. She had never had any surgery on her breast. The patient on 02-22-23 underwent a lumpectomy and SNB. Her pathology showed a 6 mm invasive ductal cancer, all margins (-) and SNB (-). DCIS 2 cm and close margins anterior, posterior, and inferior. She is not concerned about any new lumps masses or nodules in either breast. Case presented at tumor board on 01-25-23 Genetic testing: No genetic lesions of concern Note radiation oncology: 04-11-23; finished radiation [address] Whitaker ER+, CO+, Her 2(-) now on hormone therapy Caffeine: 2 cups/day nicotine: none chocolate: occasional BCP: 10 years hormones: none Family History: unknown Hormonal History: menarche: 15 , breast fed: no, age at first : 22 menopause: 52 Surgical history: Right Achilles tendon 2 heart stents; 6 years ago; takes a baby aspirin melanoma right leg; > 7 years ago back lesion premelanoma cyst from back right breast lumpectomy and SNB Medical history: HTN diabetic CAD history of melanoma GERD Social History: nicotine: as above alcohol: occasional drugs:none - Constitutional Constitutional: Denies chills, Denies fever - EENT Eyes: denies blurred vision, denies pain Ears: deny: decreased hearing, tinnitus Ears, nose, mouth and throat: Denies headache, Denies sore throat - Breasts Breasts: bilateral: as per HPI - Cardiovascular Cardiovascular: Denies chest pain, Denies shortness of breath - Respiratory Respiratory: Reports cough - Gastrointestinal Comment: GERD - Genitourinary (Female) Genitourinary: Denies dysuria, Denies hematuria - Menstruation Menstruation: Reports postmenopausal - Musculoskeletal Musculoskeletal: Denies myalgias - Integumentary Comment: 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 Integumentary: Reports as per HPI, Denies pruritus, Denies rash - Neurological Neurological: Denies numbness, Denies weakness - Psychiatric Psychiatric: Denies anxiety, Denies depression - Endocrine Endocrine: Reports as per HPI - Hematologic/Lymphatic Comment: baby aspirin - Allergic/Immunologic Allergic/Immunologic: Reports as per HPI Past Medical History Past Medical History: Coronary Artery Disease (CAD), Cancer, Diabetes Mellitus, GERD/Reflux, Hyperlipidemia, Hypertension Additional Past Medical History / Comment(s): hx invasive melanoma, torn achilles tendon History of Any Multi-Drug Resistant Organisms: None Reported Past Surgical History: Heart Catheterization With Stent Additional Past Surgical History / Comment(s): wide wedge resection on rt leg for invasive melanoma, Heart Cath with 2 stents (09/16/2017), achilles tendon repair Past Anesthesia/Blood Transfusion Reactions: No Reported Reaction, Family History of Problems w/ Anesthesia Additional Past Anesthesia/Blood Transfusion Reaction / Comment(s): pt is claustrophobic. sister-PONV Date of Last Stent Placement:: 09/16/2017 Past Psychological History: No Psychological Hx Reported Smoking Status: Former smoker Past Alcohol Use History: None Reported Additional Past Alcohol Use History / Comment(s): smoked during high school <1/2ppd Past Drug Use History: None Reported - Past Family History Mother Family Medical History: Cancer Additional Family Medical History / Comment(s): skin Medications and Allergies Home Medications Medication Instructions Recorded Confirmed Type Losartan [Cozaar] 25 mg PO DAILY 09/08/17 12/29/22 History Montelukast [Singulair] 10 mg PO HS 09/08/17 12/29/22 History Atorvastatin [Lipitor] 80 mg PO DAILY #0 09/17/17 12/29/22 Rx Metoprolol Tartrate [Lopressor] 25 mg PO BID #90 tab 09/17/17 12/29/22 Rx Aspirin [Adult Low Dose Aspirin EC] 81 mg PO DAILY 05/28/19 12/29/22 History metFORMIN HCL [Glucophage] 500 mg PO DAILY 05/28/19 12/29/22 History Pantoprazole [Protonix] 40 mg PO DAILY 05/27/22 12/29/22 History cloNIDine HCL [Catapres] 0.1 mg PO DAILY PRN 12/29/22 12/29/22 History hydroCHLOROthiazide 12.5 mg PO DAILY 12/29/22 12/29/22 History Allergies Allergy/AdvReac Type Severity Reaction Status Date / Time Penicillins Allergy Unknown Verified 12/29/22 07:50 Childhood Objective - Vital Signs Vital signs: Intake & Output 07/06/23 07/07/23 07/07/23 18:59 06:59 18:59 Weight 73.936 kg - Constitutional General appearance: Present: cooperative - EENT Eyes: Present: EOMI ENT: Present: hearing grossly normal - Neck Neck: Present: normal ROM - Respiratory Respiratory: bilateral: CTA - Cardiovascular Heart sounds: normal: S1, S2 - Integumentary Integumentary: Present: normal turgor - Musculoskeletal Musculoskeletal: Present: gait normal - Psychiatric Psychiatric: Present: A&O x's 3, appropriate affect, intact judgment & insight - Additional findings Additional findings: Breast Exam: BRA: 40B Inspection: bilateral grade 3 ptosis, post op and radiation changes right breast Palpation: Right breast slightly larger than left breast, multi-positional exam no dominant masses or nodules of concern Right axilla: No adenopathy of concern Left breast: Multi-positional exam no dominant masses or nodules of concern Left axilla: No adenopathy of concern Assessment and Plan Assessment: Impression: Right breast DCIS ER/CO positive Fibrocystic breast changes History of prior coronary artery disease with 2 stents GERD Hypertension history of melanoma Plan: Bilateral mammogram in October with physician exam at that time Continue hormone therapy as per medical oncology Continue to follow with radiation oncology CC: Dr. Sy
[2023-07-07 11:55] VITALS: BP 148/79; PULSE 64; RESP 15; TEMP 98.7
== END ==
LOC: WWCWWP 10:45
PROVIDERS: ATTEND Surgery
DX: D05.11 Intraductal carcinoma in situ of right breast (principal); N60.11 Diffuse cystic mastopathy of right breast; I25.10 Atherosclerotic heart disease of native coronary artery without angina pectoris; K21.9 Gastro-esophageal reflux disease without esophagitis; E11.9 Type 2 diabetes mellitus without complications; I10 Essential (primary) hypertension; E78.5 Hyperlipidemia, unspecified; Z85.820 Personal history of malignant melanoma of skin; Z87.891 Personal history of nicotine dependence; Z88.0 Allergy status to penicillin; Z92.3 Personal history of irradiation; Z95.5 Presence of coronary angioplasty implant and graft; Z79.84 Long term (current) use of oral hypoglycemic drugs; Z79.899 Other long term (current) drug therapy; Z79.82 Long term (current) use of aspirin; Z17.0 Estrogen receptor positive status [ER+]

== ENCOUNTER → 2023-11-07 | Outpatient (CLI) | payer MEDICARE ==
--- NOTE | 2023-11-07 14:47 | MM ---
Reason for Exam: Follow-up at short interval from prior study. Last screening mammogram was performed 12 month(s) ago. Patient History: Menarche at age 14. First Full-Term at age 22. Postmenopausal. Other cancer at or over age 52. Breast cancer, right, age 67. 02/22/2023, Lumpectomy on the Right side. 02/22/2023, Malignant MG pre op needle loc RT on the right side. Tissue Density: The breasts are heterogeneously dense, which may obscure small masses. Findings: Analyzed By CAD. Postbiopsy changes are within the upper outer posterior right breast. Surgical clips are present. Scar marker is utilized. There are a few scattered benign-appearing calcifications present. No suspicious groups of microcalcifications, spiculated or lobular masses, architectural distortion or other secondary signs of malignancy are mammographically apparent. Overall Assessment: Benign, BI-RAD 2 Management: Diagnostic Mammogram of both breasts in 1 year. A negative mammogram report should not preclude additional follow up of suspicious palpable abnormalities. Patient should continue monthly self breast exam. A clinical breast exam by your physician is recommended on an annual basis and results should be correlated with mammographic findings. Note on Kayla scores and lifetime risk: 1. A Kayla score greater than 3% is considered moderate risk. If this is the case, consider specialist referral to assess eligibility for a risk reducing agent. 2. If overall lifetime risk for the development of breast cancer is 20% or higher, the patient may qualify for future screening with alternating mammogram and breast MRI. Electronically signed and approved by: Abel Acosta D.O. Radiologis
== END | disposition home or self-care (01) ==
LOC: RADMAMWWP 14:06
PROVIDERS: ATTEND Surgery
DX: R92.333 Mammographic heterogeneous density, bilateral breasts (principal); Z85.3 Personal history of malignant neoplasm of breast; Z78.0 Asymptomatic menopausal state
CPT/HCPCS: 77066; G0279; 77062

== ENCOUNTER → 2023-11-21 | Outpatient (CLI) | payer MEDICARE ==
[2023-11-21 09:58] VITALS: BP 179/77; PULSE 63; RESP 17; TEMP 97.8
--- NOTE | 2023-11-21 10:01 | P.PN ---
Subjective Progress Note Date: 11/21/23 Principal diagnosis: Dr. Sy 07/07/23 Principal diagnosis: right breast stage I IDC, 2022 Stage I IDC, DCIS right breast Omayra is a 68 year old white female who was seen in consultation for Dr. Sy regarding a biopsy-proven right breast DCIS. The [place] [address]. This revealed indeterminate calcifications in the upper outer right breast. Spot magnification compression views were recommended. No masses were appreciated. [place] [address]. This revealed 11 x 8 mm group of calcifications in the right breast. Stereotactic core biopsy was recommended. [place] [address]. Pathology revealed DCIS. This is in the right breast at the 10 o'clock position. There is some clip migration and after review with Dr. Dowell the residual calcification should be localized. This was found on a routine screening mammogram, she had not had a mammogram for 10 years. Did not feel any lumps masses or nodules of concern in the breast. She had not had any recent trauma or infection in the breast. She had never had any surgery on her breast. The patient on 02-22-23 underwent a lumpectomy and SNB. Her pathology showed a 6 mm invasive ductal cancer, all margins (-) and SNB (-). DCIS 2 cm and close margins anterior, posterior, and inferior. She is not concerned about any new lumps masses or nodules in either breast. Case presented at tumor board on 01-25-23 Genetic testing: No genetic lesions of concern Note radiation oncology: 04-11-23; finished radiation [address] Whitaker ER+, TX+, Her 2(-) now on hormone therapy Bilateral mammogram on 11-07-23 reviewed personally and interpreted with DR. Dowell. We were specifically evaluating to confirm there were no residaul calcifications of concern in the right breast. He has recommended repeat right breast mammogram in 6 months. The patient is not complaining of any new lumps masses or nodules of concern in either breast. Caffeine: 2 cups/day nicotine: none chocolate: occasional BCP: 10 years hormones: none Family History: unknown Hormonal History: menarche: 15 , breast fed: no, age at first : 22 menopause: 52 Surgical history: Right Achilles tendon 2 heart stents; 6 years ago; takes a baby aspirin melanoma right leg; > 7 years ago back lesion premelanoma cyst from back right breast lumpectomy and SNB Medical history: HTN diabetic CAD history of melanoma GERD Social History: nicotine: as above alcohol: occasional drugs:none - Constitutional Constitutional: Denies chills, Denies fever - EENT Eyes: denies blurred vision, denies pain Ears: deny: decreased hearing, tinnitus Ears, nose, mouth and throat: Denies headache, Denies sore throat - Breasts Breasts: bilateral: as per HPI - Cardiovascular Cardiovascular: Denies chest pain, Denies shortness of breath - Respiratory Respiratory: Reports cough - Gastrointestinal Comment: GERD - Genitourinary (Female) Genitourinary: Denies dysuria, Denies hematuria - Menstruation Menstruation: Reports postmenopausal - Musculoskeletal Musculoskeletal: Denies myalgias - Integumentary Comment: follows with principal statistical programmer Integumentary: Reports as per HPI, Denies pruritus, Denies rash - Neurological Neurological: Denies numbness, Denies weakness - Psychiatric Psychiatric: Denies anxiety, Denies depression - Endocrine Endocrine: Reports as per HPI - Hematologic/Lymphatic Comment: baby aspirin - Allergic/Immunologic Allergic/Immunologic: Reports as per HPI Past Medical History Past Medical History: Coronary Artery Disease (CAD), Cancer, Diabetes Mellitus, GERD/Reflux, Hyperlipidemia, Hypertension Additional Past Medical History / Comment(s): hx invasive melanoma, torn achilles tendon History of Any Multi-Drug Resistant Organisms: None Reported Past Surgical History: Heart Catheterization With Stent Additional Past Surgical History / Comment(s): wide wedge resection on rt leg for invasive melanoma, Heart Cath with 2 stents (09/16/2017), achilles tendon repair Past Anesthesia/Blood Transfusion Reactions: No Reported Reaction, Family History of Problems w/ Anesthesia Additional Past Anesthesia/Blood Transfusion Reaction / Comment(s): pt is claustrophobic. sister-PONV Date of Last Stent Placement:: 09/16/2017 Past Psychological History: No Psychological Hx Reported Smoking Status: Former smoker Past Alcohol Use History: None Reported Additional Past Alcohol Use History / Comment(s): smoked during high school <1/2ppd Past Drug Use History: None Reported - Past Family History Mother Family Medical History: Cancer Additional Family Medical History / Comment(s): skin Medications and Allergies Home Medications Medication Instructions Recorded Confirmed Type Losartan [Cozaar] 25 mg PO DAILY 09/08/17 12/29/22 History Montelukast [Singulair] 10 mg PO HS 09/08/17 12/29/22 History Atorvastatin [Lipitor] 80 mg PO DAILY #0 09/17/17 12/29/22 Rx Metoprolol Tartrate [Lopressor] 25 mg PO BID #90 tab 09/17/17 12/29/22 Rx Aspirin [Adult Low Dose Aspirin EC] 81 mg PO DAILY 05/28/19 12/29/22 History metFORMIN HCL [Glucophage] 500 mg PO DAILY 05/28/19 12/29/22 History Pantoprazole [Protonix] 40 mg PO DAILY 05/27/22 12/29/22 History cloNIDine HCL [Catapres] 0.1 mg PO DAILY PRN 12/29/22 12/29/22 History hydroCHLOROthiazide 12.5 mg PO DAILY 12/29/22 12/29/22 History Allergies Allergy/AdvReac Type Severity Reaction Status Date / Time Penicillins Allergy Unknown Verified 12/29/22 07:50 Childhood Objective - Constitutional General appearance: Present: cooperative - EENT Eyes: Present: EOMI ENT: Present: hearing grossly normal - Neck Neck: Present: normal ROM - Respiratory Respiratory: bilateral: CTA - Cardiovascular Rhythm: regular Heart sounds: normal: S1, S2 - Integumentary Integumentary: Present: normal turgor - Musculoskeletal Musculoskeletal: Present: gait normal - Psychiatric Psychiatric: Present: A&O x's 3, appropriate affect, intact judgment & insight - Additional findings Additional findings: Breast Exam: BRA: 40B Inspection: bilateral grade 3 ptosis, post op and radiation changes right breast Palpation: Right breast slightly larger than left breast, multi-positional exam no dominant masses or nodules of concern Right axilla: No adenopathy of concern Left breast: Multi-positional exam no dominant masses or nodules of concern Left axilla: No adenopathy of concern Assessment and Plan Assessment: Impression: Right breast DCIS ER/TX positive Fibrocystic breast changes History of prior coronary artery disease with 2 stents GERD Hypertension history of melanoma bilateral mammogram 11-07-23 BIRAD 2; however this was personally reviewed with Dr. Fitzgerald and we are going to repeat a right breast mammogram in 6 months Plan: Right breast mammogram in 6 months with examination at that time Bilateral mammogram in October 2024 Continue hormone therapy as per medical oncology Continue to follow with radiation oncology follow up here in 6 months for exam CC: Dr. Sy
== END ==
LOC: WWCWWP 09:10
PROVIDERS: ATTEND Surgery
DX: R92.1 Mammographic calcification found on diagnostic imaging of breast (principal); D05.11 Intraductal carcinoma in situ of right breast; N60.11 Diffuse cystic mastopathy of right breast; N60.12 Diffuse cystic mastopathy of left breast; K21.9 Gastro-esophageal reflux disease without esophagitis; I10 Essential (primary) hypertension; Z85.820 Personal history of malignant melanoma of skin; Z92.3 Personal history of irradiation; Z95.5 Presence of coronary angioplasty implant and graft; Z87.891 Personal history of nicotine dependence; Z86.79 Personal history of other diseases of the circulatory system; Z88.0 Allergy status to penicillin; Z79.899 Other long term (current) drug therapy

== ENCOUNTER → 2024-05-09 | Outpatient (CLI) | payer MEDICARE ==
--- NOTE | 2024-05-09 10:31 | MM ---
Reason for Exam: Follow-up at short interval from prior study. Last screening mammogram was performed 6 month(s) ago. Patient History: Menarche at age 14. First Full-Term at age 22. Postmenopausal. Other cancer at or over age 52. Breast cancer, right, age 67. Previous chest radiation therapy. 02/22/2023, Lumpectomy on the Right side. 02/22/2023, Malignant MG pre op needle loc RT on the right side. Prior Study Comparison: 11/03/2022 Bilateral MG 3D screening mammo w/cad, [facility]. 11/08/2022 Right MG 3D work up w/cad RT, [facility]. 11/07/2023 Bilateral MG 3D diag mammo w/cad [facility]ARDO, [facility]. Tissue Density: Right: The breasts are heterogeneously dense, which may obscure small masses. Findings: Analyzed By CAD. Postoperative changes of right-sided lumpectomy and radiation therapy. No evidence for recurrent residual mass. No suspicious microcalcifications. Overall Assessment: Benign, BI-RAD 2 Management: Diagnostic Mammogram of the right breast in 1 year. . Results were given to the patient verbally at the time of exam. Patient should continue monthly self-breast exams. A clinical breast exam by your physician is recommended on an annual basis. This exam should not preclude additional follow-up of suspicious palpable abnormalities. Note on Kayla scores and lifetime risk: 1. A Kayla score greater than 3% is considered moderate risk. If this is the case, consider specialist referral to assess eligibility for a risk reducing agent. 2. If overall lifetime risk for the development of breast cancer is 20% or higher, the patient may qualify for future screening with alternating mammogram and breast MRI. [facility], , 05/09/2024 10:10 AM. Electronically signed and approved by: Stewart Valencia M.D. Radiologis
== END | disposition home or self-care (01) ==
LOC: RADMAMWWP 09:53
PROVIDERS: ATTEND Surgery
DX: Z85.3 Personal history of malignant neoplasm of breast (principal); Z78.0 Asymptomatic menopausal state; R92.331 Mammographic heterogeneous density, right breast
CPT/HCPCS: 77065; G0279; 77061

== ENCOUNTER → 2024-05-11 | Outpatient (CLI) | payer MEDICARE | LOC: WWCWWP 10:01 | PROVIDERS: ATTEND Surgery | DX: Z85.3 Personal history of malignant neoplasm of breast (principal); Z88.0 Allergy status to penicillin ==

== ENCOUNTER → 2024-07-27 | Outpatient (CLI) | payer MEDICARE ==
--- NOTE | 2024-07-27 13:11 | P.PN ---
Subjective Progress Note Date: 07/27/24 Principal diagnosis: right breast stage I IDC, [id number] Principal diagnosis: right breast stage I IDC, 2022 Omayra is a 68 year old white female who was seen in consultation for Dr. Sy regarding a biopsy-proven right breast DCIS. The [place] [address]. This revealed indeterminate calcifications in the upper outer right breast. Spot magnification compression views were recommended. No masses were appreciated. [place] [address]. This revealed 11 x 8 mm group of calcifications in the right breast. Stereotactic core biopsy was recommended. [place] [address]. Pathology revealed DCIS. This is in the right breast at the 10 o'clock position. There is some clip migration and after review with Dr. Dowell the residual calcification should be localized. This was found on a routine screening mammogram, she had not had a mammogram for 10 years. Did not feel any lumps masses or nodules of concern in the breast. She had not had any recent trauma or infection in the breast. She had never had any surgery on her breast. The patient on 02-22-23 underwent a lumpectomy and SNB. Her pathology showed a 6 mm invasive ductal cancer, all margins (-) and SNB (-). DCIS 2 cm and close margins anterior, posterior, and inferior. She is not concerned about any new lumps masses or nodules in either breast. Case presented at tumor board on 01-25-23 Genetic testing: No genetic lesions of concern Note radiation oncology:finished radiation [address] Whitaker ER+, SD+, Her 2(-) now on hormone therapy Bilateral mammogram on 11-07-23 reviewed personally and interpreted with DR. Dowell. We were specifically evaluating to confirm there were no residaul calcifications of concern in the right breast. He has recommended repeat right breast mammogram in 6 months. Repeat right breaset mammogram on 05-09-24 BIRAD 2. The patient is not complaining of any new lumps masses or nodules of concern in either breast. Caffeine: 2 cups/day nicotine: none chocolate: occasional BCP: 10 years hormones: none Family History: unknown Hormonal History: menarche: 15 , breast fed: no, age at first : 22 menopause: 52 Surgical history: Right Achilles tendon 2 heart stents; 6 years ago; takes a baby aspirin melanoma right leg; > 7 years ago back lesion premelanoma cyst from back right breast lumpectomy and SNB Medical history: HTN diabetic CAD history of melanoma GERD Social History: nicotine: as above alcohol: occasional drugs:none - Constitutional Constitutional: Denies chills, Denies fever - EENT Eyes: denies blurred vision, denies pain Ears: deny: decreased hearing, tinnitus Ears, nose, mouth and throat: Denies headache, Denies sore throat - Breasts Breasts: bilateral: as per HPI - Cardiovascular Cardiovascular: Denies chest pain, Denies shortness of breath - Respiratory Respiratory: Reports cough - Gastrointestinal Comment: GERD - Genitourinary (Female) Genitourinary: Denies dysuria, Denies hematuria - Menstruation Menstruation: Reports postmenopausal - Musculoskeletal Musculoskeletal: Denies myalgias - Integumentary Comment: follows with oil agent Integumentary: Reports as per HPI, Denies pruritus, Denies rash - Neurological Neurological: Denies numbness, Denies weakness - Psychiatric Psychiatric: Denies anxiety, Denies depression - Endocrine Endocrine: Reports as per HPI - Hematologic/Lymphatic Comment: baby aspirin - Allergic/Immunologic Allergic/Immunologic: Reports as per HPI Past Medical History Past Medical History: Coronary Artery Disease (CAD), Cancer, Diabetes Mellitus, GERD/Reflux, Hyperlipidemia, Hypertension Additional Past Medical History / Comment(s): hx invasive melanoma, torn achilles tendon History of Any Multi-Drug Resistant Organisms: None Reported Past Surgical History: Heart Catheterization With Stent Additional Past Surgical History / Comment(s): wide wedge resection on rt leg for invasive melanoma, Heart Cath with 2 stents (09/16/2017), achilles tendon repair Past Anesthesia/Blood Transfusion Reactions: No Reported Reaction, Family History of Problems w/ Anesthesia Additional Past Anesthesia/Blood Transfusion Reaction / Comment(s): pt is claustrophobic. sister-PONV Date of Last Stent Placement:: 09/16/2017 Past Psychological History: No Psychological Hx Reported Smoking Status: Former smoker Past Alcohol Use History: None Reported Additional Past Alcohol Use History / Comment(s): smoked during high school <1/2ppd Past Drug Use History: None Reported - Past Family History Mother Family Medical History: Cancer Additional Family Medical History / Comment(s): skin Medications and Allergies Home Medications Medication Instructions Recorded Confirmed Type Losartan [Cozaar] 25 mg PO DAILY 09/08/17 12/29/22 History Montelukast [Singulair] 10 mg PO HS 09/08/17 12/29/22 History Atorvastatin [Lipitor] 80 mg PO DAILY #0 09/17/17 12/29/22 Rx Metoprolol Tartrate [Lopressor] 25 mg PO BID #90 tab 09/17/17 12/29/22 Rx Aspirin [Adult Low Dose Aspirin EC] 81 mg PO DAILY 05/28/19 12/29/22 History metFORMIN HCL [Glucophage] 500 mg PO DAILY 05/28/19 12/29/22 History Pantoprazole [Protonix] 40 mg PO DAILY 05/27/22 12/29/22 History cloNIDine HCL [Catapres] 0.1 mg PO DAILY PRN 12/29/22 12/29/22 History hydroCHLOROthiazide 12.5 mg PO DAILY 12/29/22 12/29/22 History Allergies Allergy/AdvReac Type Severity Reaction Status Date / Time Penicillins Allergy Unknown Verified 12/29/22 07:50 Childhood Objective - Constitutional General appearance: Present: cooperative - EENT Eyes: Present: EOMI ENT: Present: hearing grossly normal - Neck Neck: Present: normal ROM - Respiratory Respiratory: bilateral: CTA - Cardiovascular Rhythm: regular Heart sounds: normal: S1, S2 - Integumentary Integumentary: Present: normal turgor - Musculoskeletal Musculoskeletal: Present: gait normal - Psychiatric Psychiatric: Present: A&O x's 3, appropriate affect, intact judgment & insight - Additional findings Additional findings: Breast Exam: BRA: 40B Inspection: bilateral grade 3 ptosis, post op and radiation changes right breast Palpation: Right breast slightly larger than left breast, multi-positional exam no dominant masses or nodules of concern Right axilla: No adenopathy of concern Left breast: Multi-positional exam no dominant masses or nodules of concern Left axilla: No adenopathy of concern Assessment and Plan Assessment: Impression: Right breast DCIS ER/SD positive Fibrocystic breast changes History of prior coronary artery disease with 2 stents GERD Hypertension history of melanoma bilateral mammogram 11-07-23 BIRAD 2; however this was personally reviewed with Dr. Fitzgerald and we are going to repeat a right breast mammogram in 6 months; right bresat mammogram 05-09-24 BIRAD 2 Plan: Bilateral mammogram in October 2024 with examination at that time Continue hormone therapy as per medical oncology Continue to follow with radiation oncology follow up here in October for exam CC: Dr. Sy
== END | disposition home or self-care (01) ==
LOC: LABWHC1 12:52
PROVIDERS: ATTEND Surgery
DX: Z53.9 Procedure and treatment not carried out, unspecified reason (principal)

== ENCOUNTER → 2024-07-27 | Outpatient (CLI) | payer MEDICARE ==
[2024-07-27 13:09] VITALS: BP 133/78; PULSE 70; RESP 17; TEMP 97.8
== END ==
LOC: WWCWWP 13:03
PROVIDERS: ATTEND Surgery
DX: Z53.9 Procedure and treatment not carried out, unspecified reason (principal)

== ENCOUNTER → 2024-07-30 | Outpatient (CLI) | payer MEDICARE ==
[2024-07-30 15:48] LABS: ALT 26 U/L (8-44); AST 26 U/L (13-35); Albumin 4.4 g/dL (3.8-4.9); Albumin/Globulin Ratio 1.83 Ratio (1.60-3.17); Alkaline Phosphatase 93 U/L (41-126); BUN/Creat Ratio 20.17 Ratio (12.00-20.00); Blood Urea Nitrogen 12.1 mg/dL (9.0-27.0); Calcium 10.5 mg/dL (8.7-10.3); Carbon Dioxide 26.1 mmol/L (21.6-31.8); Chloride 103 mmol/L (96-109); Chol/HDL Ratio 2.76 Ratio; Globulin 2.4 g/dL (1.6-3.3); Glucose 118 mg/dL (70-110); LDL Cholesterol,Calculated 62.2 mg/dL (0.0-131.0); Magnesium 1.6 mg/dL (1.5-2.4); Potassium 4.2 mmol/L (3.5-5.5); Sodium 141 mmol/L (135-145); Total Bilirubin 0.4 mg/dL (0.3-1.2); Total Protein 6.8 g/dL (6.2-8.2); VLDL Calculation 18.84 mg/dL (5.00-40.00)
[2024-07-30 16:27] LABS: Basophils # (A) 0.03 X 10*3/uL (0.00-0.10); Basophils % (A) 0.3 %; Eosinophils # (A) 0.14 X 10*3/uL (0.04-0.35); Eosinophils % (A) 1.6 %; HCT 42.8 % (37.2-46.3); Lymphocytes # (A) 1.29 X 10*3/uL (0.90-5.00); Lymphocytes % (A) 14.9 %; MCHC 32.7 g/dL (32.0-37.0); MCV 91.6 FL (80.0-97.0); Mean Platelet Volume 10.8 FL (9.5-12.2); Monocytes # (A) 0.46 X 10*3/uL (0.20-1.00); Monocytes % (A) 5.3 %; NRBC Per 100 WBC 0 X 10*3/uL (0.00-0.01); Neutrophils # (A) 6.68 X 10*3/uL (1.80-7.70); Neutrophils % (A) 77.6 %; Platelet Count 320 X 10*3/uL (140-440); RBC 4.67 X 10*6/uL (4.10-5.20); WBC 8.63 X 10*3/uL (4.50-10.00)
== END | disposition home or self-care (01) ==
LOC: LABWHC1 10:05
PROVIDERS: ATTEND Internal Medicine
DX: I10 Essential (primary) hypertension (principal); E11.9 Type 2 diabetes mellitus without complications; M85.80 Other specified disorders of bone density and structure, unspecified site
CPT/HCPCS: 36415; 80053; 80061; 82043; 82306; 82570; 83735; 84443; 85025

== ENCOUNTER → 2024-11-01 | Outpatient (CLI) | payer MEDICARE ==
--- NOTE | 2024-11-01 09:09 | MM ---
Reason for Exam: Hx of breast cancer, conservation therapy. Last screening mammogram was performed 12 month(s) ago. Patient History: Menarche at age 14. First Full-Term at age 22. Postmenopausal. Other cancer at or over age 52. Breast cancer, right, age 67. Previous chest radiation therapy. 02/22/2023, Lumpectomy on the Right side. 02/22/2023, Malignant MG pre op needle loc RT on the right side. Tissue Density: The breasts are heterogeneously dense, which may obscure small masses. Findings: Analyzed By CAD. Postsurgical changes right breast. Benign-appearing calcifications bilaterally. Overall Assessment: Benign, BI-RAD 2 Management: Screening Mammogram of both breasts in 1 year. . Results were given to the patient verbally at the time of exam. Patient should continue monthly self-breast exams. A clinical breast exam by your physician is recommended on an annual basis. This exam should not preclude additional follow-up of suspicious palpable abnormalities. Note on Kayla scores and lifetime risk: 1. A Kayla score greater than 3% is considered moderate risk. If this is the case, consider specialist referral to assess eligibility for a risk reducing agent. 2. If overall lifetime risk for the development of breast cancer is 20% or higher, the patient may qualify for future screening with alternating mammogram and breast MRI. [facility], , 11/01/2024 9:06 AM. Electronically signed and approved by: Jonnathan Rodríguez M.D. Radiologis
== END | disposition home or self-care (01) ==
LOC: RADMAMWWP 08:36
PROVIDERS: ATTEND Surgery
DX: C50.911 Malignant neoplasm of unspecified site of right female breast (principal); R92.333 Mammographic heterogeneous density, bilateral breasts; Z78.0 Asymptomatic menopausal state; Z85.3 Personal history of malignant neoplasm of breast
CPT/HCPCS: 77066; G0279; 77062

== ENCOUNTER → 2024-11-05 | Outpatient (CLI) | payer MEDICARE ==
--- NOTE | 2024-11-05 14:25 | BD ---
EXAMINATION TYPE: Axial Bone Density DATE OF EXAM: 11/05/2024 CLINICAL HISTORY: 69 years old Female. ICD-10 CODE: M81.0 OSTEOPENIA , Additional History: Height: 58.5 in Weight: 161 lbs pt has had a fx rt elbow approximate age 47 EXAM MEASUREMENTS: Bone mineral densitometry was performed using the [employer] System. Bone mineral density as measured about the Lumbar spine is: ----- L1-L4(G/cm2): 1.251 T Score Values are as follows: ----- L1: -0.4 ----- L2: 0.3 ----- L3: 2.0 ----- L4: 0.3 ----- L1-L4: 0.6 Z Score Values are as follows: ----- L1: 0.9 ----- L2: 1.6 ----- L3: 3.3 ----- L4: 1.7 ----- L1-L4: 1.9 Bone mineral density has: Increased 4.2% since study of: 11/03/2022 Bone mineral density about the R hip (g/cm2): 0.935 Bone mineral density about the L hip (g/cm2): 0.900 T Score values are as follows: -----R Neck: -1.1 -----L Neck: -1.4 -----R Total: -0.6 -----L Total: -0.9 Z Score values are as follows: -----R Neck: 0.3 -----L Neck: 0.0 -----R Total: 0.5 -----L Total: 0.2 Bone mineral density has: Increased 0.3% since study of: 11/03/2022 FRAX%s: The graph provided illustrates a 14.0% chance for a major osteoporotic fx and a 1.4% chance f or the hips probability for fx in 10 years time. IMPRESSION: Osteopenia (T Score between -2.5 and -1). There is slightly increased risk of fracture and the patient may be considered for treatment. Re-Screen 2-5 years. NOTE: T-SCORE=SD OF THE YOUNG ADULT MEAN. [facility], , 11/05/2024 2:23 PM
== END | disposition home or self-care (01) ==
LOC: RADBDWWP 12:50
PROVIDERS: ATTEND Internal Medicine Hematology & Oncology
DX: C50.411 Malignant neoplasm of upper-outer quadrant of right female breast (principal); M81.0 Age-related osteoporosis without current pathological fracture; M85.89 Other specified disorders of bone density and structure, multiple sites; Z71.3 Dietary counseling and surveillance; Z85.820 Personal history of malignant melanoma of skin
CPT/HCPCS: 77080

== ENCOUNTER → 2024-11-29 | Outpatient (CLI) | payer MEDICARE ==
[2024-11-29 12:32] VITALS: BP 136/75; PULSE 78; RESP 17; TEMP 97.9
--- NOTE | 2024-11-29 12:45 | P.PN ---
Subjective Progress Note Date: 11/29/24 Principal diagnosis: right breast stage I IDC, 202211-29-24 right breast stage I IDC, 2022 Omayra is a 69 year old white female who was seen in consultation for Dr. Sy regarding a biopsy-proven right breast DCIS. [place] [address]. This revealed indeterminate calcifications in the upper outer right breast. Spot magnification compression views were recommended. No masses were appreciated. [place] [id number]. This revealed 11 x 8 mm group of calcifications in the right breast. Stereotactic core biopsy was recommended. [place] [id number]. Pathology revealed DCIS. This is in the right breast at the 10 o'clock position. There was some clip migration and after review with Dr. Dowell the residual calcification should be localized. This was found on a routine screening mammogram, she had not had a mammogram for 10 years. Did not feel any lumps masses or nodules of concern in the breast. She had not had any recent trauma or infection in the breast. She had never had any surgery on her breast. The patient on 02-22-23 underwent a lumpectomy and SNB. Her pathology showed a 6 mm invasive ductal cancer, all margins (-) and SNB (-). DCIS 2 cm and close margins anterior, posterior, and inferior. She is not concerned about any new lumps masses or nodules in either breast. Case presented at tumor board on 01-25-23 Genetic testing: No genetic lesions of concern finished radiation [address] Whitaker ER+, MI+, Her 2(-) now on hormone therapy; anastrazole tolerating it well Bilateral mammogram on 11-01-24 BIRAD 2, reviewed personally and interpreted The patient is not complaining of any new lumps masses or nodules of concern in either breast. She is taking a shot one time a week for diabetes and to lose weight because her A1C was going up, cristal 7.5 Caffeine: 2 cups/day nicotine: none chocolate: occasional BCP: 10 years hormones: none Family History: unknown Hormonal History: menarche: 15 , breast fed: no, age at first : 22 menopause: 52 Surgical history: Right Achilles tendon 2 heart stents; 6 years ago; takes a baby aspirin melanoma right leg; > 7 years ago back lesion premelanoma cyst from back right breast lumpectomy and SNB Medical history: HTN diabetic CAD history of melanoma GERD Social History: nicotine: as above alcohol: occasional drugs:none - Constitutional Constitutional: Denies chills, Denies fever - EENT Eyes: denies blurred vision, denies pain Ears: deny: decreased hearing, tinnitus Ears, nose, mouth and throat: Denies headache, Denies sore throat - Breasts Breasts: bilateral: as per HPI - Cardiovascular Cardiovascular: Denies chest pain, Denies shortness of breath - Respiratory Respiratory: Reports cough - Gastrointestinal Comment: GERD - Genitourinary (Female) Genitourinary: Denies dysuria, Denies hematuria - Menstruation Menstruation: Reports postmenopausal - Musculoskeletal Musculoskeletal: Denies myalgias - Integumentary Comment: follows with shipping lead Integumentary: Reports as per HPI, Denies pruritus, Denies rash - Neurological Neurological: Denies numbness, Denies weakness - Psychiatric Psychiatric: Denies anxiety, Denies depression - Endocrine Endocrine: Reports as per HPI - Hematologic/Lymphatic Comment: baby aspirin - Allergic/Immunologic Allergic/Immunologic: Reports as per HPI Past Medical History Past Medical History: Coronary Artery Disease (CAD), Cancer, Diabetes Mellitus, GERD/Reflux, Hyperlipidemia, Hypertension Additional Past Medical History / Comment(s): hx invasive melanoma, torn achilles tendon History of Any Multi-Drug Resistant Organisms: None Reported Past Surgical History: Heart Catheterization With Stent Additional Past Surgical History / Comment(s): wide wedge resection on rt leg for invasive melanoma, Heart Cath with 2 stents (09/16/2017), achilles tendon repair Past Anesthesia/Blood Transfusion Reactions: No Reported Reaction, Family History of Problems w/ Anesthesia Additional Past Anesthesia/Blood Transfusion Reaction / Comment(s): pt is claustrophobic. sister-PONV Date of Last Stent Placement:: 09/16/2017 Past Psychological History: No Psychological Hx Reported Smoking Status: Former smoker Past Alcohol Use History: None Reported Additional Past Alcohol Use History / Comment(s): smoked during high school <1/2ppd Past Drug Use History: None Reported - Past Family History Mother Family Medical History: Cancer Additional Family Medical History / Comment(s): skin Medications and Allergies Home Medications Medication Instructions Recorded Confirmed Type Losartan [Cozaar] 25 mg PO DAILY 09/08/17 12/29/22 History Montelukast [Singulair] 10 mg PO HS 09/08/17 12/29/22 History Atorvastatin [Lipitor] 80 mg PO DAILY #0 09/17/17 12/29/22 Rx Metoprolol Tartrate [Lopressor] 25 mg PO BID #90 tab 09/17/17 12/29/22 Rx Aspirin [Adult Low Dose Aspirin EC] 81 mg PO DAILY 05/28/19 12/29/22 History metFORMIN HCL [Glucophage] 500 mg PO DAILY 05/28/19 12/29/22 History Pantoprazole [Protonix] 40 mg PO DAILY 05/27/22 12/29/22 History cloNIDine HCL [Catapres] 0.1 mg PO DAILY PRN 12/29/22 12/29/22 History hydroCHLOROthiazide 12.5 mg PO DAILY 12/29/22 12/29/22 History Allergies Allergy/AdvReac Type Severity Reaction Status Date / Time Penicillins Allergy Unknown Verified 12/29/22 07:50 Childhood Objective - Vital Signs Vital signs: Vital Signs Temp 97.9 F 11/29/24 12:30 Pulse 78 11/29/24 12:30 Resp 17 11/29/24 12:30 BP 136/75 11/29/24 12:30 Pulse Ox 96 11/29/24 12:30 FiO2 Intake & Output 11/28/24 11/29/24 11/29/24 18:59 06:59 18:59 Weight 70.307 kg - Constitutional General appearance: Present: cooperative - EENT Eyes: Present: EOMI ENT: Present: hearing grossly normal - Neck Neck: Present: normal ROM - Integumentary Integumentary: Present: normal turgor - Musculoskeletal Musculoskeletal: Present: gait normal - Psychiatric Psychiatric: Present: A&O x's 3, appropriate affect, intact judgment & insight - Additional findings Additional findings: Breast Exam: BRA: 40B Inspection: bilateral grade 3 ptosis, post op and radiation changes right breast Palpation: Right breast slightly larger than left breast, multi-positional exam no dominant masses or nodules of concern Right axilla: No adenopathy of concern Left breast: Multi-positional exam no dominant masses or nodules of concern Left axilla: No adenopathy of concern Assessment and Plan Assessment: Impression: Right breast DCIS ER/MI positive Fibrocystic breast changes History of prior coronary artery disease with 2 stents GERD Hypertension history of melanoma bilateral mammogram 11-01-24 BIRAD 2; personally reviewed and interpreted Plan: Bilateral mammogram in October 2025 with examination at that time Continue hormone therapy as per medical oncology; anastrazole Continue to follow with radiation oncology follow up here in 6 months for examination CC: Dr. Sy
== END ==
LOC: WWCWWP 12:23
PROVIDERS: ATTEND Surgery
DX: D05.11 Intraductal carcinoma in situ of right breast (principal); K21.9 Gastro-esophageal reflux disease without esophagitis; I10 Essential (primary) hypertension; N60.11 Diffuse cystic mastopathy of right breast; Z17.0 Estrogen receptor positive status [ER+]; Z95.5 Presence of coronary angioplasty implant and graft; Z85.820 Personal history of malignant melanoma of skin; Z88.0 Allergy status to penicillin